=== PATIENT | female | born 1995 | race Caucasian/White ===

== ENCOUNTER 2024-10-11 08:14 | Emergency (ER) | payer OTHER, SELFPAY ==
[2024-10-11 08:17] VITALS: BP 130/89; PULSE 77; RESP 16; TEMP 36.3; O2SAT 100; BMI 28.3
--- NOTE | 2024-10-11 08:53 | CRLHL7_ITS ---
For Patients: As a result of the Cures Act, medical imaging exams and procedure reports are released immediately into your electronic medical record. You may view this report before your referring provider. If you have questions, please contact your health care provider. INDICATION: Abdominal pain. TECHNIQUE: CT abdomen and pelvis without contrast. COMPARISON: None. FINDINGS: Lower chest: Unremarkable. Liver: Normal in size and attenuation. No suspicious masses. Gallbladder and bile ducts: No stones or inflammation. No biliary dilatation. Pancreas: Unremarkable. No mass or inflammation. Spleen: Normal in size. No masses. Adrenal glands: Normal in size. No nodules. Kidneys: 0.9 centimeter hyperdense cyst versus cortical calcification in the mid left kidney. No suspicious renal lesion visible. No hydronephrosis or urolithiasis. Ureters normal in caliber. Urinary bladder thin-walled GI tract: No bowel obstruction or focal inflammation. Normal appendix. No diverticular disease. Vasculature: Abdominal aorta is normal in caliber. Lymph nodes: No lymphadenopathy. Peritoneum/Abdominal Wall: Unremarkable. No sign of mass or infiltration. No free air or significant free fluid. Pelvis: Unremarkable. No pelvic masses. IUD in place. Bones: Mild lower thoracic spondylosis. No suspicious osseous lesion. IMPRESSION: No acute inflammatory process in the abdomen or pelvis. Please note that all CT scans at this facility use dose modulation, iterative reconstruction, and/or weight-based dosing when appropriate to reduce radiation dose to as low as reasonably achievable. Dictated by Andrea Li MD @ 10/11/2024 9:36:21 AM (Electronically Signed)
--- NOTE | 2024-10-11 08:54 | ED.ABDPAIN ---
HPI - Abdominal Pain General Chief Complaint: Abdominal Pain Stated Complaint: Abdominal pain Time Seen by Provider: 10/11/24 08:35 History of Present Illness HPI narrative: This 29-year-old female comes in reporting 6 lb weight gain and difficulty passing stool over the past several days. She has had problems like this in the past but it is significantly worse recently. She does not report any fevers. She states that she has a history of bladder incontinence and has a stimulator that has corrected the problem with urinary incontinence but probably is contributing to her constipation. She did have a colonoscopy about 7 years ago with normal results. Related Data Home Medications ?Medication ?Instructions ?Recorded ?Confirmed buspirone 30 mg tablet 30 mg PO BID 09/07/24 10/11/24 duloxetine 60 mg capsule,delayed 60 mg PO BID 09/07/24 10/11/24 release (Cymbalta) gabapentin 300 mg capsule 300 mg PO BID 09/07/24 10/11/24 levonorgestrel 17.5 mcg/24 hr (up 1 device intrauterine ONCE 09/07/24 10/11/24 to 5 yrs) 19.5mg intrauterine device (Kyleena) prucalopride 2 mg tablet 2 mg PO QDAY 09/07/24 10/11/24 semaglutide 1 mg/dose (2 mg/1.5 2 mg subcut QWEEK 09/07/24 10/11/24 mL) subcutaneous pen injector Allergies Allergy/AdvReac Type Severity Reaction Status Date / Time formaldehyde Allergy Severe Anaphylaxis Verified 09/07/24 15:04 avocado Allergy Unknown Verified 10/11/24 08:22 Iodinated Contrast Media Allergy Unknown Verified 10/11/24 08:22 shellfish derived Allergy Unknown Verified 10/11/24 08:22 strawberry Allergy Unknown Verified 10/11/24 08:22 diclofenac AdvReac Mild Hives Verified 09/07/24 15:04 Sulfa (Sulfonamide AdvReac Mild Rash Verified 09/07/24 15:04 Antibiotics) Review of Systems Status of ROS Reports: 10 or more systems reviewed and unremarkable except as noted in History and below Narrative Constitutional: No fevers, no weight gain or loss. Eyes: No discharge. No vision changes. HENT: No congestion, no sore throat, no ear pain. Cardiovascular: No chest pain, no palpitations. Respiratory: No shortness of breath, no wheezes, no cough. Gastrointestinal: No vomiting, no diarrhea. Abdominal pain and distension. Genitourinary: No dysuria, no hematuria. Musculoskeletal: Normal range of motion. Skin: No rashes, no pruritis. Neurological: No dizziness, weakness, sensory change, speech change. Endo/Heme/Allergies: No bruising or bleeding. No polydipsia. Pysch: no suicidality, no anxiety, no insomnia. All other systems reviewed and are negative. [facility] Social History Smoking Status: Never smoker How often do you have a drink containing alcohol: monthly or less How often do you have six or more drinks on one occasion: Never AUDIT-C Alcohol total score: 1 Non-prescribed substance use: denies use Exam Narrative: Exam Narrative: Constitutional: Well-developed, well-nourished, no acute distress. HEENT: Normocephalic, atraumatic. Neck: Normal range of motion. Nontender. Supple. Heart: Regular. No murmurs. Normal rate. Intact distal pulses. Lungs: Clear to auscultation. No chest discomfort. No wheezes, rhonchi, or rales. Abdomen: Normal bowel sounds. Diffuse tenderness in the abdomen. No rebound tenderness. Genitalia: Deferred. Back: No midline tenderness. Normal range of motion. Extremities: Normal range of motion. No injury. Skin: Intact. No rash. Warm. No erythema or pallor. Neurologic: No altered sensation. No weakness. Alert and oriented. Psychiatric: No suicidality. No anxiety or depression. No insomnia. Nursing notes and vitals signs are reviewed. Const: Vital Signs, click to edit/add: Vital Signs - 24 hr 10/11/24 08:17 10/11/24 10:11 Temperature 97.4 F L Pulse Rate [Pulse Oximeter] 77 73 Respiratory Rate 16 16 Blood Pressure [Ri ght Upper Arm] 130/89 120/84 Pulse Oximetry 100 100 Oxygen Delivery Me thod Room Air Room Air Course Vital Signs Vital signs: Initial Vital Signs Temperature 97.4 F L 10/11/24 08:17 Temperature Source Temporal Artery Scan 10/11/24 08:17 Pulse Rate 77 10/11/24 08:17 Respiratory Rate 16 10/11/24 08:17 Blood Pressure 130/89 10/11/24 08:17 Blood Pressure Mean 102 10/11/24 08:17 Blood Pressure Position Sitting 10/11/24 08:17 Pulse Oximetry 100 10/11/24 08:17 Oxygen Delivery Method Room Air 10/11/24 08:17 Vital Signs Temperature 97.4 F L 10/11/24 08:17 Pulse Rate 77 10/11/24 08:17 Respiratory Rate 16 10/11/24 08:17 Blood Pressure 130/89 10/11/24 08:17 Pulse Oximetry 100 10/11/24 08:17 Oxygen Delivery Method Room Air 10/11/24 08:17 Temperature 97.4 F L 10/11/24 08:17 Pulse Rate 73 10/11/24 10:11 Respiratory Rate 16 10/11/24 10:11 Blood Pressure 120/84 10/11/24 10:11 Pulse Oximetry 100 10/11/24 10:11 Oxygen Delivery Method Room Air 10/11/24 10:11 MDM - Abdominal Pain MDM Narrative Medical decision making narrative: This patient comes in reporting constipation issues as described above. She states that her symptoms have seen and worse than before and she has used several enemas at home with small results. I did obtain CT imaging and this was done without contrast she states that she had a reaction to contrast in the past. CT results shows no acute findings. I do note that she has distended ascending colon on the right side and this is where she is having more symptoms. The left abdomen descending colon and rectum seemed to be fairly well evacuated probably because of her enema usage. I did review the current bowel regimen that she is using and recommended that she try adding magnesium products such as magnesium citrate or milk of magnesia. The patient is reassured with imaging and lab results today. Her lab results do also returned with normal findings. She is okay to be discharged home. Lab Data Labs: Lab Results 10/11/24 Range/Units 09:05 WBC 5.79 (4.50-11.00) K/uL RBC 4.26 (4.00-5.20) m/uL Hgb 13.1 (12.0-16.0) gm/dL Hct 37.8 (33.0-51.0) % MCV 89 (80-100) fL MCH 31 (26-34) pg MCHC 35 (32-36) gm/dL RDW Coeff of Sd 11.5 (11.5-15.5) % Plt Count 176 (140-440) K/uL Neut % (Auto) 55.8 (42.0-72.0) % Lymph % (Auto) 34.2 (20-44) % [place] % (Auto) 7.6 (0.0-11.0) % Eos % (Auto) 1.9 (0.0-7.0) % Baso % (Auto) 0.5 (0.0-3.0) % Neut # (Auto) 3.23 (1.7-7.0) K/uL Lymph # (Auto) 1.98 (0.90-2.90) K/uL [place] # (Auto) 0.40 (0.00-0.90) K/UL Eos # (Auto) 0.11 (0.00-0.50) K/uL Baso # (Auto) 0.03 (0.00-0.30) K/uL Abs Immat Gran (auto) 0.00 (0.00-0.30) K/uL Imm/Tot Granulo (auto) 0.0 % Sodium 139 (135-149) mmol/L Potassium 4.2 (3.6-5.1) mmol/L Chloride 103 (96-114) mmol/L Carbon Dioxide 28 (20-32) mmol/L Anion Gap 8 (7-15) mEq/L BUN 8 (5-24) mg/dL Creatinine 0.7 (0.5-1.5) mg/dL Estimated Creat Clear 105.74 Estimated GFR 119 ml/min Glucose 78 (60-115) mg/dL Calcium 9.2 (8.4-10.6) mg/dL C-Reactive Protein < 0.5 L (0.5-1.0) mg/dL Imaging Data CT scan - abdomen: Radiologist's impression: No acute inflammatory process in the abdomen or pelvis. Discharge Plan Discharge Clinical Impression: Abdominal pain, Constipation Patient Disposition: Home, Self-Care Condition: Stable Additional Instructions: Continue current plans. Use magnesium products and other [id number] medicines as needed and directed for bowel management. Return if worsening. Prescriptions: No Action prucalopride 2 mg tablet 2 mg PO QDAY gabapentin 300 mg capsule 300 mg PO BID buspirone 30 mg tablet 30 mg PO BID duloxetine [Cymbalta] 60 mg capsule,delayed release(DR/EC) 60 mg PO BID semaglutide 1 mg/dose (2 mg/1.5 mL) pen injector 2 mg subcut QWEEK Kyleena 17.5 mcg/24 hr (5 yrs) 19.5 mg intrauterine device 1 device intrauterine ONCE Rx Instructions: as a single dose Follow Up/Referrals: Provider,Not a Local [Primary Care Provider, Family Practice] Stand Alone Forms: MyHealth Info Instructions
--- OUTSIDE RECORDS SUMMARY | 2024-10-11 09:00 | XMS_ITS | Clinical Summary ---
Author Organization [facility] Address [address] , [address] [place] [address] Phone Care Team Providers Care Doctor Of Nurse Anesthesia Practice Name Role Phone Micaela Long Unavailable Conditions or Problems Problem Name Problem Code Onset Date Status Entry Date Provider Comment Standard Description Annotate Migraine headache with aura 9285802 (SNOMED CT) 07/06 Active 07/06 Cece Sears MD Migraine with aura Migraine w/out aura 70714651 (SNOMED CT) 07/06 Active 07/06 Cece Sears MD Migraine without aura Hypersomnia (ESS 19; NL MSLT x2; 2022---20 msl on 5 naps) G47.11 (ICD-10-CM ) 10/16 Active 10/16 Edy Brooks Jr, MD 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 (PSG w/29 arousals/hr) G47.00 (ICD-10-CM ) Active dEy Brooks Jr, MD Insomnia, unspecified Conversion disorder with mixed symptom presentation ([place]) 13872831 (SNOMED CT) 10/16 Active 10/16 Edy Brooks Jr, MD Dissociative disorder Nonrestorati ve sleep G47.9 (ICD-10-CM ) 10/16 Active 10/16 Edy Brooks Jr, MD Sleep disorder, unspecified Excessive Daytime Sleepiness 820679269 (SNOMED CT) 10/30 Resolved 10/30 Edy Brooks Jr, MD Drowsy Snoring 37017340 (SNOMED CT) 12/01 Resolved 12/02 Edy Brooks Jr, MD Snoring Sleep disturbance, NOS 53026688 (SNOMED CT) 12/02 Resolved 12/03 Edy Brooks Jr, MD Dyssomnia Hypersomnia (ESS 19; NL MSLT 2018) 05145401 (SNOMED CT) 10/16 Inactive 10/16 Edy Brooks Jr, MD Hypersomnia 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 aura, 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 G43.719 (ICD-10-CM ) 06/03 Active 06/03 Doron Restrepo MD Chronic migraine without aura, intractable, without status migrainosus TIA 111130128 (SNOMED CT) 01/08 Active 01/08 Doron Restrepo MD Transient cerebral ischemia indeterminat e stereotypic spells R40.4 (ICD-10-CM ) 07/23 Active 07/23 Doron Restrepo MD Transient alteration of awareness Sleep disturbance, NOS 61493130 (SNOMED CT) 12/02 Removed 12/03 Venecia Henriquez MD Dyssomnia Snoring 08485964 (SNOMED CT) 12/01 Removed 12/02 Venecia Henriquez MD Snoring Excessive Daytime Sleepiness 674560330 (SNOMED CT) 10/30 Removed 10/30 Venecia Henriquez MD Drowsy Fatigue, chronic 16118232 (SNOMED CT) 10/30 Active 10/30 Venecia Henriquez MD Fatigue Paresthesias 58978189 (SNOMED CT) 09/17 Active 09/17 Doron Restrepo MD Paresthesia Somatization disorder 006444446 (SNOMED CT) 09/23 Active 10/14 Milagros Landrum PhD Somatization disorder Leg pain 23209634 (SNOMED CT) 10/09 Active 10/09 Doron Restrepo MD Pain in lower limb Headache 25121734 (SNOMED CT) 09/07 Active 09/08 Ian Zuniga MD Headache Mixed urinary incontinence 645564329 (SNOMED CT) 09/07 Active 09/08 Ian Zuniga MD Mixed urinary incontinence Lumbar disc herniation 83459814 (SNOMED CT) 09/07 Active 09/08 Ian Zuniga MD Displacement of lumbar intervertebral disc without myelopathy REFLEX SYMPATHETIC DYSTROPHY OF THE LOWER LIMB 101986640 (SNOMED CT) 06/20 Active 06/21 Ian Zuniga MD Reflex sympathetic dystrophy of lower extremity Medications Medication Instructions Start Date Stop Date Generic Name NDC Provider BELSOMRA 10 MG TABS take 1 tab by mouth 30 minutes before bedtime. suvorexant [id number] Katrina Amado ROLL TESTER BELSOMRA 10 MG TABS take 1 tab by mouth 30 minutes before bedtime. 06/10 suvorexant 77709208210 Margie Naqvi PA-C OMEPRAZOLE 20 MG CPDR 1 cap daily omeprazole 85595347105 Margie Naqvi PA-C DULOXETINE HCL 60 MG CPEP 1 cap BID duloxetine 87598811874 Margie Naqvi PA-C AJOVY 225 MG/1.5ML SOAJ Inject 1 pen injector subcutaneously once a month 05/13 fremanezumab-[facility] [id number] Margie Naqvi PA-C BUSPIRONE HCL 10 MG TABS 1 tab BID buspirone 27207518571 Margie Naqvi PA-C GABAPENTIN 300 MG CAPS 1 cap BID gabapentin 42550354805 Margie Naqvi PA-C MOTEGRITY 2 MG TABS 1 tab daily prucalopride 36752176546 Margie Naqvi PA-C WEGOVY 1.7 MG/0.75ML SOAJ 2.4 mg weekly semaglutide (weight loss) 68793667484 Margie Naqvi PA-C MELATONIN ER 3 MG CR-TABS take 1 tab at bedtime 06/25 melatonin 48224928598 Margie Naqvi PA-C CONTROL PILL 10/16 CONTROL PILL Edy Brooks Jr, MD PRILOSEC CAPSULE DELAYED RELEASE 10/16 PRILOSEC CAPSULE DELAYED RELEASE Edy NEWTONVY 0.5 MG/0.5ML SOAJ 10/16 semaglutide (weight loss) 78802681196 Edy Brooks Jr, MD BUSPIRONE HCL 10 MG TABS 1 three times a day 20 mg BID 10/16 buspirone 21151649304 Edy Brooks Jr, MD CYMBALTA 60 MG CPEP 1 twice a day 10/16 duloxetine 63248034567 Edy Brooks Jr, MD GABAPENTIN 300 MG CAPS 1 twice a day 10/16 gabapentin 29229017807 Edy Brooks Jr, MD GABAPENTIN 300 MG CAPS 10/08 gabapentin 00308852279 Edy Brooks Jr, MD BUSPIRONE HCL 10 MG TABS 05/13 buspirone 76631958892 Edy Brooks Jr, MD OMEPRAZOLE 20 MG CPDR 10/08 omeprazole 19947148982 Edy SAVAGEGOVY 1.7 MG/0.75ML SOAJ 05/13 semaglutide (weight loss) 04567424700 Edy Brooks Jr, MD MOTEGRITY 2 MG TABS 05/13 prucalopride 50429942952 Edy Brooks Jr, MD NORETHINDRONE 0.35 MG TABS norethindrone (contraceptive) 80225658277 Edy Brooks Jr, MD DULOXETINE HCL 60 MG CPEP 05/13 duloxetine 68629347017 Edy Brooks Jr, MD PROVIGIL 100 MG TABS Take 1 tablet by mouth once a day 07/11 modafinil 77297569702 Margie Naqvi PA-C BUSPIRONE HCL 10 MG TABS 1 three times a day 20 mg BID 0 10/16 buspirone 71282265376 Margie Hickmanaravindil PA-C PREDNISONE 20 MG TABS Day #1 and #2 take 2 pills tid. Day #3 and #4 take 2 pills bid. Day #5 and #6 take 1 pill qAM. Then stop. 07/10 prednisone 16674835661 Margieelizabeth Rojasil PA-C WEGOVY 0.5 MG/0.5ML SOAJ 10/16 semaglutide (weight loss) 33256428589 Margie Rafiakatrina Rojasil PA-C PROBIOTIC (LACTOBACILLUS) CAPS lactobacillus acidophilus 26165885306 Margie Morataya Marylouucheril PA-C CALCIUM ASCORBATE 500 MG TABS ascorbate calciu m (vitamin c) 22107867111 Margie Rojasil PA-C MULTI-VITAMINS TABS multivitamin 12925460660 Margie Rafia Marylouucheril PA-C LACTULOSE 10 GM/15ML SOLN prn lactulose 11506387328 Margie Rafiakatrina Rojasil PA-C MIRALAX 17 GM/SCOOP POWD prn polyethylene glycol 3350 99790002018 Margie Rafia Cherucheril PA-C Fleet Enema 19-7 gram/118 mL enema prn sodium phosphates 25591669577 Margie Morataya Marylouucheril PA-C KIRK ALLERGY 180 MG TABS fexofenadine 98612297874 Margie Rafia Marylouucheril PA-C PROVIGIL 200 MG TABS Take 1 once a day 07/10 modafinil 66371260824 Margie Morataya Marylouaravindil PA-C BENADRYL ALLERGY TABLET BENADRYL ALLERGY TABLET Margie Morataya Marylouucheril PA-C BUSPIRONE HCL 5 MG TABS 1 three times a day 07/10 buspirone 66973664209 Margie Naqvi KIN-C GABAPENTIN 300 MG CAPS 1 twice a day 10/08 gabapentin 16362820101 Margie Naqvi KIN-C CYMBALTA 60 MG CPEP 1 twice a day 10/16 duloxetine 74686188457 Margie Naqvi KIN-C AJOVY 225 MG/1.5ML SOAJ Inject 1 pen injector subcutaneously once a month 05/[facility] 0[facility] Margie Naqvi KIN-C PROVIGIL 100 MG TABS Take 1 tablet by mouth once a day 07/11 modafinil 92965125097 Margie Naqvi KIN-C PREDNISONE 20 MG TABS Day #1 and #2 take 2 pills tid. Day #3 and #4 take 2 pills bid. Day #5 and #6 take 1 pill qAM. Then stop. 07/10 prednisone 34124027476 Doron Restrepo MD PROVIGIL 200 MG TABS take 1 pill daily 07/10 MODAFINIL 41433345635 Doron Restrepo MD BENADRYL ALLERGY TABS 07/10 DIPHENHYDRAMINE HCL TABS 04019716785 Venecia Henriquez MD MAGNESIUM CAPSULE MAGNESIUM OXIDE CAPS 35227793413 Venecia Henriquez MD KIRK ALLERGY 180 MG TABS 07/10 FEXOFENADINE HCL 23071728218 Doron Restrepo MD BUSPIRONE HCL 5 MG TABS 1 pill tid 07/10 BUSPIRONE HCL 46910978678 Doron Restrepo MD GABAPENTIN 300 MG CAPS 1 pill twice daily 10/08 GABAPENTIN 07302636162 Doron Restrepo MD LYRICA 150 MG CAPS 1 bid 09/17 PREGABALIN 41040996711 Doron Restrepo MD PRILOSEC CAPSULE DELAYED RELEASE 10/16 OMEPRAZOLE CPDR 22798649735 Doron Restrepo MD CYMBALTA 60 MG CPEP 1 bid 07/10 DULOXETINE HCL 36228059975 Doron Restrepo MD LYRICA 150 MG CAPS 1 bid 08/17 PREGABALIN 15592032430 Doron Restrepo MD NEURONTIN 300 MG CAPS 1 pill 3 times daily 06/02 GABAPENTIN 32888942864 Doron Restrepo MD CYMBALTA 20 MG CPEP 2 pills twice daily 06/02 DULOXETINE HCL 17536635148 Doron Restrepo MD KIRK ALLERGY 180 MG TABS 1 daily 06/02 FEXOFENADINE HCL 19072680923 Doron Restrepo MD LINZESS CAPS 1 daily 06/02 LINACLOTIDE CAPS 80612147291 Doron Restrepo MD CONTROL PILL 10/16 CONTROL PILL Doron Restrepo MD LINZESS CAPS 1 daily 06/02 LINACLOTIDE CAPS 48216679830 Doron Restrepo MD KIRK ALLERGY 180 MG TABS 1 daily 06/02 FEXOFENADINE HCL 93313584616 Doron Restrepo MD CYMBALTA 20 MG CPEP 2 pills twice daily 06/02 DULOXETINE HCL 23941609561 Doron Restrepo MD AMITRIPTYLINE HCL 10 MG TABS Week #1 take 1 in PM, Week #2 take 2 in PM, then Week #3 and on take 3 in PM 12/25 AMITRIPTYLINE HCL 47696876795 Doron Restrepo MD AMITRIPTYLINE HCL 10 MG TABS Week #1 take 1 in PM, Week #2 take 2 in PM, then Week #3 and on take 3 in PM 12/25 AMITRIPTYLINE HCL 73491775579 Doron Restrepo MD NEURONTIN 300 MG CAPS 1 pill 3 times daily 06/02 GABAPENTIN 37151767587 Doron Restrepo MD NEURONTIN 300 MG CAPS 2 pills 3 times daily 11/13 GABAPENTIN 78741047879 Doron Restrepo MD AMITRIPTYLINE HCL 10 MG TABS 3 q hs 10/20 AMITRIPTYLINE HCL 57410553324 Katrina Rodasalan RN NEURONTIN 300 MG CAPS 2 bid 10/09 GABAPENTIN 59258576143 Ian Zuniga MD NEURONTIN 300 MG CAPS 1 qhs x 1wk then 1 bid 09/15 GABAPENTIN 75640800199 Ian Zuniga MD AMITRIPTYLINE HCL 10 MG TABS 3 q hs 10/20 AMITRIPTYLINE HCL 32378190511 Ian Zuniga MD AMITRIPTYLINE HCL 10 MG TABS 1 qhs x 10d then 2 qhs 06/27 AMITRIPTYLINE HCL 77626650414 Ian Zuniga MD Medications Administered No information available. Allergies, Adverse Reactions, Alerts Allergy Name Reaction Description Start Date Severity Status Provider [facility] MELATONIN hard to breath Critical Active Sandra Serrano PABellaC SULFA hives Moderate Active Margie Naqvi PA-C CONTRAST DYE Critical Active Doron Restrepo MD FORMALDEHYDE Critical Active Doron Restrepo MD DICLOFENAC SODIUM Critical Active Kathleen Restrepo MD VICODIN Critical Active Doron Restrepo MD SULFA Critical No Longer Active Doron Restrepo MD Results Date Name Value Unit Range Flag Description Office Visit: PRE SJ PATIENT 10/10/15 10:05- 10/10/15 10:05 REFERRING PHYS... SMOK STATUS never smoker Toba senior accountant analyst smoking status Replaced Document: (P) PROTE IN, TOTAL AND PROTEIN ELECTROPHORESIS WITH IMMUNOFI ... ZINC, SERUM * ug/dL Zinc [Mas s/volume] in Serum or Plasma HGBA1C * % Hemoglobin A1c/Hemoglobin, total in Blood - % B-12 * pg/mL Cobalamin (Vi tamin B12) [Mass/volume] in Serum or Plasma ABNPROTBND3 * g/dL Abnormal Protein Band 3, g/dL ABNPROTBND2 * g/dL Abnormal Protein Band 2, g/dL ABNPROTBND * g/dL Abnormal P rotein Band 1, g/dL GAMMA GLOB * mg/dL Gamma glob ulin [Mass/volume] in Serum or Plasma by Electrophoresis [id number] * g/dL beta 2 g lobulin [id number] * g/dL beta 1 g lobulin ALPHA 2 GLOB * Alpha 2 globulin [Mass/volume] in Serum or Plasma by Electrophoresis ALPH-1 SR PE * g/dL alpha-1 globulin, serum, by protein electrophoresis ALBUM SER PE * g/dL albumin, serum by protein electrophoresis Internal Other: Authorizatio n - OBS PTSTAUTHDT Done N PT Startin g Authorization Date Lab Report: FTA-ABS FTA AB S NON-REACTIVE NON-REAC TIVE N FTA Antibody, Serum Clinical Lists Update: Metho d of Contact METHCONTACT secmsg Patient's prefered method of contact Lab Report: (P) COMPREHENSIV E METABOLIC PANEL, CBC (INCLUDES DIFF/PLT), ... CERULOPLASMI * mg/dL cerulopl asmin, serum COMMENTS * comments AUTONUC RBC * /100{WB C} Nucleated RBC BLAST % * % blasts as per cent of blood leukocytes BASOPHIL % * % Basophils/ 100 leukocytes in Blood by Manual count EOSINOPHIL % * % Eosinoph ils/100 leukocytes in Blood by Manual count MONOCYTE % * % Monocytes/ 100 leukocytes in Blood by Automated count REACT LYMPH% * % reactive lymphocytes, blood, as percent of total leukocytes LYMPHS % * % Lymphocytes/ 100 leukocytes in Blood by Automated count PROMYELO % * % promyelocy salvatore as percent of blood leukocytes MYELOCYTE % * % myelocyte s as percent of blood leukocytes METAMYELO % * % metamyelo cytes as percent of blood leukocytes BANDS CT * 10*3/mm 3 neutrophil count, band form, blood PMN % * % Neutrophils/1 00 leukocytes in Blood by Automated count NUCLEATRBCAB * ABSOLUTE NUCLEATED RBC BLASTS * blast count, blood BASOPH COUNT * 10*3/mm 3 Basophils [#/volume] in Blood by Manual count EOS COUNT * 10*3/mm 3 eosinophil count, blood MONOSCT AUTO * 10*3/uL Monocyte s [#/volume] in Blood by Automated count LYMPH COUNT * 10*3/mm 3 lymphocyte count, blood PROMYELO CT * 10*3/mm 3 promyelocyte count, blood MYELOCYTES * 10*3/mm 3 Myelocytes [#/volume] in Blood by Manual count METAMYELO CT * 10*3/mm 3 metamyelocyte count, blood ABS BANDS * {Cells} /uL Absolute Band Neutrophil count NEUT CT MANU * 10*3/mm 3 neutrophil count, blood, manual MPV * fL Platelet mean volume [Entitic volume] in Blood by Rachelle PLATELETS * 10*3/mm 3 Platelets [#/volume] in Blood by Automated count RDW * % Erythrocyte distribution width [Ratio] by Automated count MCHC * % MCHC [Mass/vo lume] by Automated count MCH * pg MCH [Entitic mass] by Automated count MCV * fL MCV [Entitic volume] by Automated count HCT * % Hematocrit [V olume Fraction] of Blood by Automated count HGB * g/dL Hemoglobin [Mass/volume] in Blood RBC * 10*6/mm 3 Erythrocytes [#/volume] in Blood by Automated count WBC * 10*3/mm 3 Leukocytes [#/volume] in Blood by Automated count SGPT (ALT) 47 U/L 6-29 H Alanine aminotransferase [Enzymatic activity/volume] in Serum or Plasma AST_SGOT 26 10-30 N Aspartate aminotransferase [Enzymatic activity/volume] in Serum or Plasma ALK PHOS 39 U/L 33-115 N Alkaline phosphatase [Enzymatic activity/volume] in Blood BILI TOTAL 0.3 mg/dL 0.2-1.2 N Bilirubin. total [Mass/volume] in Serum or Plasma A/G RATIO 1.2 (calc) 1.0-2.5 N Albumin/ Globulin [Mass Ratio] in Serum or Plasma GLOBULIN TOT 3.2 G/DL (CALC) g/dL 1.9-3.7 N Globulin [Mass/volume] in Serum ALBUMIN 3.9 g/dL 3.6-5.1 N Albumin [Mass/volume] in Serum or Plasma PROTEIN, TOT 7.1 g/dL 6.1-8.1 N Protein [Mass/volume] in Serum or Plasma CALCIUM 9.1 mg/dL 8.6-10.2 N Calcium [Moles/volume] in Serum or Plasma CO2 TOTAL 23 mmol/L 19-30 N carbon diox sallie, serum, total CHLORIDE 105 mmol/L 98-110 N Chloride [Moles/volume] in Serum or Plasma POTASSIUM 4.1 mmol/L 3.5-5.3 N Potassium [Moles/volume] in Serum or Plasma SODIUM 136 mmol/L 135-146 N Sodium [Moles/volume] in Serum or Plasma BUN/CREAT NOT APPLICABLE (calc) 6-22 Urea nitrogen/Creatinine [Mass Ratio] in Serum or Plasma EGFR IF AFA 136 mL/min/ 1.73m2 > OR = 60 N Glomerular filtration rate/1.73 sq M.predicted among blacks [Volume Rate/Area] in Serum, Plasma or Blood by Creatinine-based formula (MDRD) EGFR NOT AFA 118 mL/min/ 1.73m2 > OR = 60 N Glomerular filtration rate/1.73 sq M.predicted among non-blacks [Volume Rate/Area] in Serum, Plasma or Blood by Creatinine-based formula (MDRD) CREATININE 0.73 mg/dL 0.50-1.1 0 N Creatinine [Mass/volume] in Serum or Plasma BUN 10 mg/dL 7-25 N Urea nitrogen [Mass/volume] in Serum or Plasma GLUCOSE SER 95 mg/dL 65-99 N Glucose [Mass/volume] in Serum or Plasma Replaced Document: (P) COMPR EHENSIVE METABOLIC PANEL, CBC (INCLUDES DIFF/PLT), ... TSH * u[iU]/m L Thyrotropin [Units/volume] in Serum or Plasma T4, FREE * ng/dL Thyroxine (T 4) free [Mass/volume] in Serum or Plasma T4, TOTAL * ug/dL Thyroxine ( T4) [Mass/volume] in Serum or Plasma Office Visit: [facility] 06/02/17 11:43- 06/02/17 11:43 REFERRING PHYSICIAN NAME... [facility] Fall Risk Screening completed. Fall risk assessment Replaced Document: (P) PARAN EOPLASTIC AB EVAL W/REFL TITER/WB, BASIC, STRIATED ... ACETCHBND AB * acetylch oline binding antibody VOLTGATEDCC * Voltage G ated Calcium Channel Antibodies Replaced Document: (P) CREAT INE KINASE, TOTAL, SED RATE BY MODIFIED ZEINABREN, ... COPPER SER * ug/mL copper, bl ood VIT B1 PLSM * ug/L Vitamin B 1 (thiamine), plasma VIT B6 * VITAMIN B6, P LASMA VITD 25OH TO * VITAMIN D, 25 OH, TOTAL FERRITIN * ng/mL Ferritin [Mass/volume] in Serum or Plasma [id number] * GE use only - for [employer] import when terms are not otherwise specified HCV VIRUS AB * Hepatiti s C virus 5-1-1 Ab [Presence] in Serum by Immunoblot SSB * Sjogren's syndrome-B, extractable nuclear Ab, serum SSA * Sjogren's syndrome-A, extractable nuclear Ab, serum RHEUMOT FACT * [iU]/mL Rheumato id factor [Units/volume] in Serum or Plasma INTRP * Interpretatio n ANASCR IFA * OMAR SCREEN , IFA LYME DIS AB * Borrelia burgdorferi.VlsE1+p epC10 Ab [Units/volume] in Serum by Immunoassay TTG * U/mL TTG (tissue transglutaminase antibody) ESR 19 mm/h < OR = 20 N Erythrocyte sedimentation rate by Westergren method CPK * U/L Creatine mary jane se [Enzymatic activity/volume] in Serum or Plasma Internal Other: Verbal Autho rization/Emergency Contact - OBS VERBAL_EMER DONE Verbal authorization and emergency contact Lab Report: DRUG SCREEN, COM PREHENSIVE (URINE)---GBP DRUG SCREEN DRUG(S) DETECTED: A drug screensilvestre, qualitative PLEASE NOTE * Please no te: Office Visit: JANNY FSLE; katina zepeda s/e; retry Belsomra 5; psych; sleep psycholX MEDS REVIEW Done Documenta tion of current medications (procedure) Internal Other: Authorizatio n - OBS [email or web address] Yes Authoriza tion: Release of Information - Authorize [facility] - Payment and Healthcare Operations ROIAUTHOTHER Yes Authoriz ation: Release of Information - Authorize Others/Insurance - Payment and Healthcare Operations HIECONSENT Yes Consent To Release information to the Health Information Exchange (HIE) AUTHVMEMTM Yes Authorizat ion: Authorization for [facility] to leave messages, voicemail, send text messages, send emails AUTHRELHCARE Yes Authoriz ation: Release/Retrieval of Information to/from Healthcare Facilities, Pharmacy Benefit Payers and Providers AUTHPRIVPRAC Yes Authoriz ation: Notice of privacy practices AUTHBENEFIT Yes Authoriza tion: Assignment of Benefits and Payment Agreement Plan of Care Type Date Detail Pending order Follow up Sleep Pending order Follow up Sleep Pending Order exclud ed from report: Pending order Patient Instruct ions Pending order Patient Instruct ions Pending order Patient Instruct ions Pending order Sleep Psychology Referral Pending order Sleep Psychology Referral Pending order Patient Instruct ions Pending order Follow up Pending order Follow up Pending order Follow up Sleep JANNY Pending order Follow up Sleep AJNNY Pending Order exclud ed from report: Pending order Follow up JANNY in clinic or telemedicine Pending order 2 weeks Actigrap hy Watch w/ Sleep Journals (Call Sleep Lab) Pending order Overnight PSG w/ MSLT at end of the 2 week actigraphy (Call Sleep Lab) Pending order Follow up Sleep JANNY telemedicine Pending order Patient Instruct ions Pending order Sleep NEW Consul t w/ Sleep Physician Pending order Follow up JANNY in clinic or telemedicine Pending order Echocardiogram C omplete with Bubble w/o Contrast Pending order Telemedicine Fol low up Pending order Follow up Pending Order exclud ed from report: Pending order MRI-Brain W/WO Pending order EEG Routine Pending order EEG Routine Pending Order exclud ed from report: Pending order Follow up Pending order Patient Instruct ions Pending order Follow up Pending order Sleep Study - MS LT Pending order Actigraphy Watch - 2 week Pending order Patient Instruct ions Pending order Consult Pending order EMG bilateral up per ext Pending order OMAR Pending order CK (Creatine Kin ase) Total Pending order Copper Pending order ESR (Sedimentati on Rate) Pending order Hepatitis C Ab ( HCV) Pending order Immunofixation S lois Pending order Lyme Total Ab w/ Reflex (reflex to Western Blot) Pending order Rheumatoid (RA) Factor Pending order Sjogren's Ab - S SA/SSB (ANTI-Ro/ANTI-La) Pending order t-Transglutamina se (tTG) IgA Pending order Vitamin B1 (Thia mine) Pending order Vitamin B6 (Pyri doxine) Pending order Vitamin D 25 Hyd aubrey Pending order Ferritin Serum Pending order Consult Pending Order exclud ed from report: Pending order Patient Instruct ions Pending order Consult Pending order Neuropsych Testi ng Pending order Consult Pending order Patient Instruct ions Pending order Paraneoplastic A utoAb Eval Pending order Other Referral Pending order Patient Instruct ions Pending order Consult Pending order Consult Pending order Follow up Pending order MRI-Brain W/WO Pending order OMAR Pending order Copper Pending order Hemoglobin A1C Pending order Hepatitis C Ab ( HCV) Pending order Immunofixation S lois w/Electrophoresis Pending order Lyme Total Ab w/ Reflex (reflex to Western Blot) Pending order Rheumatoid (RA) Factor Pending order Sjogren's Ab - S SA/SSB (ANTI-Ro/ANTI-La) Pending order t-Transglutamina se (tTG) IgA Pending order Treponemal IgG ( Treponema Pallidum IgG ALEX) Pending order Vitamin B1 (Thia mine) Pending order Vitamin B12 Pending order Vitamin B6 (Pyri doxine) Pending order Vitamin D 25 Hyd aubrey Pending order Zinc Pending order Follow up Pending order Other Referral Patient education Amitriptyline% 20(Oral)%20(Tablet) Procedures Code Procedure Name Date Entry Date ORDERS Follow up Sleep ORDERS Follow up Sleep JANNY CPT-93990 Multiple Sleep Latency Testing - 4+ naps (91699) CPT-21106 Actigraphy tstg rec analysis & interp min 3-days (35165) CPT-47432 PSG, 4+ parameters w/ tech - 6yrs or trena r (61665) ORDERS Follow up JANNY in clinic or telemedicine 2 ORDERS Patient Instructions ORDERS 2 weeks Actigraphy W atch w/ Sleep Journals (Call Sleep Lab) ORDERS Overnight PSG w/ MSL T at end of the 2 week actigraphy (Call Sleep Lab) ORDERS Follow up Sleep JANNY telemedicine ORDERS Sleep NEW Consult w/ Sleep Physician 2022 ORDERS Follow up JANNY in clinic or telemedicine 2 ORDERS Echocardiogram Complete with Bubble w/o C ontrast ORDERS Telemedicine Follow up 02/24 ORDERS Follow up [id number] MRI-Brain W/WO ORDERS EEG Routine ORDERS Patient Instructions [id number] Documentation of current medicatio ns ORDERS Follow up CPT-38347 Multiple Sleep Laten cy Testing - 4+ naps (90313) CPT-49034 PSG, 4+ parameters w / tech - 6yrs or older (24209) CPT-37647 Actigraphy tstg rec analysis & interp min 3-days (17007) ORDERS Patient Instructions ORDERS Sleep Study - MSLT 8 ORDERS Actigraphy Watch - 2 week 20 22/10/27 [id number] Consult ORDERS EMG bilateral upper ext 2018 CPT-41380 Nerve Conduction 9-10 studies CPT-64278 EMG with NCS (5+ muscles) - 2 limbs 09/19 SCT-[id number] Consult SCT-[id number] Documentation of current medicatio ns ORDERS CK (Creatine Kinase) Total 2 ORDERS ESR (Sedimentation Rate) 201 01/08/16 ORDERS Vitamin D 25 Hydroxy ORDERS OMAR ORDERS Copper ORDERS Hepatitis C Ab (HCV) ORDERS Immunofixation Serum ORDERS Lyme Total Ab w/Refl ex (reflex to Western Blot) ORDERS Rheumatoid (RA) Factor 09/17 ORDERS Sjogren's Ab - SSA/SSB (ANTI-Ro/ANTI-La) ORDERS t-Transglutaminase (tTG) IgA ORDERS Vitamin B1 (Thiamine) 09/17 ORDERS Vitamin B6 (Pyridoxine) 2018 ORDERS Ferritin Serum ORDERS Patient Instructions [id number] Consult CPT-32635 Neuropsych assmnt w/ prov 4 hr CPT-6042933 Neuropsych assmnt w/ tech 2 hr CPT-1244537 Neuropsych test by computer ORDERS Neuropsych Testing 9 CPT-36220 Skin Biopsy, 1 lesion 06/17 CPT-27541 Skin Biopsy, addtional lesion SCT-[id number] Consult ORDERS Patient Instructions ORDERS Paraneoplastic AutoAb Eval 2 SCT-[id number] Documentation of current medicatio ns SCT-085204445 Other Referral ORDERS Patient Instructions SCT-[id number] Documentation of current medicatio ns SCT-689132086 Consult SCT-[id number] Consult SCT-[id number] Documentation of current medicatio ns ORDERS Follow up [facility]-[id number] Documentation of current medicatio ns CPT-28510 Brief emotional/behavioral assessment 201 10/10/22 SCT-[id number] Documentation of current medicatio ns CPT-23019 Brief emotional/behavioral assessment 201 10/10/11 CPT-K2061G ProHance Gadolinium- based MR Contrast - 20 ml vial CPT-06838 MRI Brain W/WO ORDERS Lyme Total Ab w/Refl ex (reflex to Western Blot) ORDERS t-Transglutaminase (tTG) IgA ORDERS Treponemal IgG (Trep onema Pallidum IgG ALEX) ORDERS Vitamin B1 (Thiamine) 10/09 ORDERS Vitamin B6 (Pyridoxine) 2015 [id number] MRI-Brain W/WO ORDERS Follow up [facility]-[id number] Documentation of current medicatio ns ORDERS Hemoglobin A1C ORDERS Immunofixation Serum w/Electrophoresis 20 18/10/06 ORDERS Vitamin B12 ORDERS Vitamin D 25 Hydroxy ORDERS Hepatitis C Ab (HCV) ORDERS Rheumatoid (RA) Factor 10/09 ORDERS OMAR ORDERS Copper ORDERS Sjogren's Ab - SSA/SSB (ANTI-Ro/ANTI-La) ORDERS Zinc [id number] Other Referral Vital Signs Date Name Value Unit Description Height 65.5 [in_us] height E&M BMI (Body Mass Index) 29.16 kg/m2 Bod y Mass Index (Ratio) Respiratory Rate 16 /min respirat ory rate E&M Weight Measured 177.3 [lb_av] weight E& M Weight Measured 177.3 [lb_av] weight E& M Weight Measured 80.59 kg weight in kilograms E&M BP Diastolic 78 mm[Hg] blood pressu re, diastolic BP Systolic 120 mm[Hg] blood pressur e, systolic Heart Rate 104 /min pulse rate Immunizations No information available. Advance Directives No information available.
--- OUTSIDE RECORDS SUMMARY | 2024-10-11 09:01 | XMS_ITS | Clinical Summary ---
Author Organization [facility] Address [address] [place] [address] Care Team Providers Care Quality Control Industrial Engineer Name Role Phone Doron Restrepo MD Unavailable [phone] Shkair Givens MD Unavailable [phone] Meera Salter Primary Care Provider [phone] Allergies Active Allergy Reactions Criticality Noted Date Comments Diatrizoate Allergen Hives 08/27/2018 Diclofenac Anaphylaxis,Angioedema High 08/22/2015 Fluticasone Other - Describe In Comment Field 10/03/2015 Nose Bleeds Unlisted Allergen (Include Detail In Comments) Anaphylaxis High 06/27/2015 Formaldehyde, any preservatives [place] Anaphylaxis,Hives High 06/27/2015 Sulfa (Sulfonamide Antibiotics) Hives 06/27/2015 Hydrocodone-Acetaminop hen Itching 06/27/2015 Medications EPINEPHrine (EPIPEN) 0.3 mg/0.3 mL auto-injector Inject 0.3 mg intramuscular one time if needed for Allergic Reaction. 2 Each 0 08/22/19 16 Active gabapentin (NEURONTIN) 300 mg capsule Take 300 mg by mouth two times daily. 0 11/15/19 16 Active ascorbic acid, vitamin C, (VITAMIN C) 1,000 mg tablet Take 1,000 mg by mouth once daily. 0 08/28/19 17 Active magnesium 250 mg tab Take 3 tablets by mouth once daily. 0 08/28/19 17 Active DULoxetine (CYMBALTA) 60 mg Delayed-release capsule Take 60 mg by mouth two times daily. Active busPIRone (BUSPAR) 10 mg tablet Take 25 mg by mouth two times daily. Morning and evening Active busPIRone (BUSPAR) 10 mg tablet Take 20 mg by mouth once daily in the afternoon. Active norethindrone, Contraceptive, (MICRONOR, 28,) 0.35 mg tablet Take 0.35 mg by mouth once daily in the evening. Active prucalopride (Motegrity) 2 mg tablet Take 2 mg by mouth once daily in the evening. Active promethazine (PHENERGAN) 12.5 mg tablet Take 12.5 mg by mouth 3 times daily if needed for Nausea/Vomiting. Active lactulose 10 gram/15 mL solution Take 20 g by mouth two times daily. Active LANSOPRAZOLE ORAL Take 1 Tablet by mouth two times daily before meals. Dose unknown Active oxyCODONE-acetamin ophen (PERCOCET) 5-325 mg per tabletIndications: Pain in both lower extremities Take 1 Tablet by mouth every 6 hours if needed for Pain. Max acetaminophen dose: 4000mg in 24 hrs. 6 Tablet 05/09/19 23 Active ondansetron (ZOFRAN ODT) 4 mg disintegrating tabletIndications: Chills Place 1 Tablet (4 mg) on the tongue every 6 hours if needed for Nausea/Vomiting. 10 Tablet 05/09/19 23 Active semaglutide (Wegovy) 0.25 mg/0.5 mL pen Inject 0.25 mg subcutaneous once weekly. 2 mL 3 2:20 PM SENIOR ENGINEER 05/29/19 23 Active fremanezumab-vfrm (Ajovy Autoinjector) 225 mg/1.5 mL atIn Inject 1 pen injector subcutaneously once a month 1.5 mL 11 07/11/19 23 Active semaglutide (Wegovy) 1 mg/0.5 mL pen Inject 0.5 mL (1 mg) subcutaneously once a week for 4 doses. 2 mL 3 5:01 PM CDT 07/25/19 23 Active lactulose 10 gram/15 mL solution Take 30-60 mL (20-40 g) by mouth up to three times daily. 5400 mL 3 06/03/19 23 Active lubiprostone (AMITIZA) 24 mcg capsule Take 1 Capsule (24 mcg) by mouth two times daily with meals and water. 60 Capsule 11 12/16/19 22 Active omeprazole (PRILOSEC) 20 mg Delayed-Release capsule Take 1 Capsule (20 mg) by mouth two times daily 1 hour before meals. 60 Capsule 3 5:00 PM CDT 12/12/19 23 Active Melatonin 3 mg TbER Take 1 tablet by mouth at bedtime. 30 Tablet 5 3 5:05 PM SENIOR ENGINEER 03/13/20 23 Active suvorexant (Belsomra) 10 mg tablet Take 1 tablet by mouth 30 minutes before bedtime. 30 Tablet 5 3 4:51 PM SENIOR ENGINEER 03/21/20 23 Active benzonatate (TESSALON) 200 mg capsule Take 1 Capsule (200 mg) by mouth three times a day as needed for Cough. 30 Capsule 04/03/20 23 Active norethindrone, Contraceptive, (MICRONOR, 28,) 0.35 mg tablet Take 1 Tablet (0.35 mg) by mouth once daily. 84 Tablet 1 4 3:54 PM CDT 07/14/19 24 Active traMADoL (ULTRAM) 50 mg tablet Take 1 Tablet (50 mg) by mouth every 6 hours if needed for pain 10 Tablet 4 4:59 PM CDT 08/14/19 24 Active triamcinolone (ARISTOCORT; KENALOG) 0.1 % cream Apply a thin layer topically to areas of eczema on hands, arms, and back two times daily. Do not use on face, armpits, or groin. 80 g 11 08/27/19 24 Active prucalopride (Motegrity) 2 mg tablet Take 1 tablet by mouth every day. 90 Tablet 3 5 5:21 PM CDT 09/19/19 24 Active drospirenone, contraceptive, (Slynd) 4 mg (28) tab Take 1 Tablet by mouth once daily. 84 Tablet 3 4 4:59 PM CDT 12/02/19 24 Active busPIRone 10 mg tablet Take 2 Tablets (20 mg) by mouth two times daily. 360 Tablet 3 5 10:14 AM CDT 12/16/19 24 Active DULoxetine 60 mg Delayed-release capsule Take 1 Capsule (60 mg) by mouth two times daily. 180 Capsule 3 5 11:16 AM CDT 12/16/19 24 Active gabapentin 300 mg capsule Take 1 Capsule (300 mg) by mouth two times daily. 180 Capsule 3 5 2:37 PM CDT 12/16/19 24 Active semaglutide, weight loss, (Wegovy) 2.4 mg/0.75 mL subcutaneous pen Inject 2.4 mg subcutaneous once weekly. 9 mL 3 4 4:41 PM SENIOR ENGINEER 12/16/19 24 Active norethindrone, Contraceptive, (MICRONOR, 28,) 0.35 mg tablet Take 1 Tablet (0.35 mg) by mouth once daily. 84 Tablet 3 5 2:43 PM SENIOR ENGINEER 01/21/20 24 Active EPINEPHrine 0.3 mg/0.3 mL auto-injector Inject 0.3 mg intramuscular one time if needed for up to 1 dose. May repeat. 2 Each 1 5 11:16 AM CDT 03/17/20 24 Active Active Problems Patient Care Coordination No te Formatting of this note migh t be different from the original. Provided patient [facility] Weight Management Manual: Medical Program Kesha Perry RD, LD [facility] Bariatric [place] 02/15/2016 Problem Noted Date Diagnosed Date Contact dermatitis and eczema 05/09/2022 Overview (05/09/2022): OTC eucerin cream Routine health maintenance 05/06/2022 Overview (05/09/2022): Reviewed at physical exam 05/06/2022 Menstrual periods: regular/PCOS Calcium/vit D: Recommended daily DEXA: NA Obesity: Estimated body mass index is 32.3 kg/m as calculated from the following: Height as of 04/24/22: 1.651 m (5' 5). Weight as of 04/24/22: 88 kg (194 lb 1.6 oz). Exercise: Recommended daily 30 min Smoking cessation: Never smoker Mammogram: DUE 39 Pap smear: Last 2017, 05/06/2022 completed Colonoscopy: neg 2017 for IBS-C symptoms. DUE age 44 Chronic migraine without aur a, intractable, without status migrainosus 04/03/2022 Urinary frequency 03/20/2022 Overview (05/09/2022): Added automatically from request for surgery [id number] Transient ischemic attack 01/08/2022 Acute kidney injury 12/27/2021 Contrast media allergy 12/27/2021 Slurred speech 12/27/2021 PCOS (polycystic ovarian syndrome) 12/22/2020 Iron deficiency 04/17/2020 Overview (05/09/2022): Ongoing iron def 04/2020 (improved ferritin and iron panel, STFR/ferritin 1.83) Transient alteration of awareness 07/24/2019 History of anaphylaxis 03/24/2019 Overview (05/09/2022): formaldehyde Dyssomnia 12/02/2018 Snoring 12/01/2018 Somnolence 10/30/2018 Bat bite wound 10/18/2018 Raynaud's phenomenon without gangrene 08/14/2018 Polymyalgia 05/20/2018 History of menorrhagia 04/23/2018 Abnormal finding on MRI of brain 04/07/2018 Overview (05/09/2022): 05/2016 bilat optic nerve sheath, 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 Per PMR consult 2016 She has been to multiple doctors including neurosurgeons, neurologists without any definitive cause for her pain. MRIs showed some disc bulging at L5-S1 with Tarlov cysts in the sacral area. She did go see a doctor in [place] that specializes in Tarlov cysts who felt those were likely are contributing to her symptoms I recommended she try to get a nerve block at the S1 level to see if that helps with her symptoms. physical therapy, gabapentin 300 mg t.i.d. 2015, 2016 OSH Lumbar MRI - s/p injection x2 Dr Jo PMR with relief. Back pain controlled as of 04/07/2018 Chronic insomnia 04/07/2018 Overview (05/09/2022): Benadryl rarely used 2 times per month, has not had sleep study. Family history of colonic polyps 03/31/2018 Overview (05/09/2022): Prior colonoscopy for symptoms 2017 negative. Mother polyps age 45, great aunt colon cancer, mat grandfather polyps Fatigue 03/31/2018 Somatization disorder 09/23/2017 Migraine without aura and wi thout status migrainosus, not intractable 02/28/2017 Overview (05/09/2022): Imitrex works well for abortive therapy, currently reports under control. Major depressive disorder with single episode Lupus anticoagulant positive 05/23/2016 Overview (05/09/2022): No combined contraceptives. Progesterone only IUD or mini pill advised. 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 Follows with a therapist every 3 weeks but [place], 1st name Louise. Has been on Cymbalta 60 mg b.i.d. for the past few years. Obsessive-compulsive disorder 01/24/2005 Overview (09/14/2015): Overview: w/ separation anxiety, specific phobia Onset: Since 3rd grade Obesity (BMI 30-39.9) Depression Overview (03/08/2016): Saw a therapist who specialized in chronic pain-no longer seeing Now in a chronic disease support group Migraines Tarlov cysts Overview (09/14/2015): spine and sacrum GERD (gastroesophageal reflux disease) Anxiety Overview (09/14/2015): panic Paresthesias Overview (09/14/2015): bilateral legs, perineal area Incontinence Overview (09/14/2015): inconclusive work up Nausea Overview (03/08/2016): Chronic Neuropathy Overview (09/14/2015): bilateral leg numbness, gabapentin Iron deficiency anemia Constipation Overview (09/15/2015): severe Resolved Problems Problem Noted Date Diagnosed Date Resolved Date Chronic interstitial cystitis 09/14/2015 09/14/2015 Overactive bladder 09/14/2015 6 Incontinence 09/14/2015 09/14/2015 Depression 09/14/2015 Neuropathy 09/15/2015 H/O blood clots 09/14/2015 GERD (gastroesophageal reflux disease) 09/14/2015 Depression 09/14/2015 Orthostatic lightheadedness 03/08/2016 OCD (obsessive compulsive disorder) 09/14/2015 Overview (09/14/2015): since 3rd grade Constipation 10/03/2015 Constipation 10/03/2015 Family History Medical History Relation Name Comments Other Brother 1 history of over weight/ obesity Other Brother 2 history of over weight/ obesity Hypertension Father Other Father history of over weight/ obesity Diabetes Maternal Grandfather Heart Disease Maternal Grandfather Hyperlipidemia Maternal Grandfather Hypertension Maternal Grandfather Other Maternal Grandfather history of overweight/ obesity Hyperlipidemia Maternal Grandmother Other Maternal Grandmother history of overweight/ obesity Other Mother history of over weight/ obesity Heart Disease Paternal Grandfather Relation Name Status Comments Brother 1 Alive Brother 2 Alive Father Alive Maternal Grandfather Alive Maternal Grandmother Alive Mother Alive Paternal Grandfather Alive Paternal Grandmother Alive Social History Tobacco Use Types Packs/Day Years Used Date Smoking Tobacco: Never Smokeless Tobacco: Never Tobacco Cessation:Counseling Given: Yes Comments:05/27/2016 Alcohol Use Standard Drinks/Week Comments No 0 (1 standard drink = 0.6 oz pure alcohol) 05/27/2016: last consumed 04-25-15 Social Connections Answer Date Recorded Frequency of Communication with Friends and Fami ly Not on file 08/13/2022 Interpersonal Safety Answer Date Record ed Are you being hit, kicked, p ushed or yelled at (see row info)? No 06/16/2024 Interpersonal Safety Abuse 12 - 18 Not on file 06/16/2024 Interpersonal Safety Ambulatory Vulnerability No t on file 06/16/2024 Comments No Sex and Gender Information Value Date Recorded Sex Assigned at Not on file Legal Sex Female 1:04 PM SENIOR ENGINEER Gender Identity Not on file Sexual Orientation Not on file Occupation Industry Job Start Date Job End Date [employer]IAN Not on file Not on file Not on file Obstetrics History Last Filed Vital Signs Vital Sign Reading Time Taken Comments Blood Pressure 115/73 06/16/2024 1:30 PM SENIOR ENGINEER Pulse 84 06/16/2024 1:30 PM SENIOR ENGINEER Temperature 36.6 C (97.9 F) 06/16/2024 11:50 AM SENIOR ENGINEER Respiratory Rate 20 06/16/2024 11:50 AM SENIOR ENGINEER Oxygen Saturation 98% 06/16/2024 1:30 PM SENIOR ENGINEER Inhaled Oxygen Concentration - - Weight 73.9 kg (163 lb) 06/16/2024 11:50 AM SENIOR ENGINEER Height 165.1 cm (5' 5) 06/16/2024 11:50 AM SENIOR ENGINEER Body Mass Index 27.12 06/16/2024 11:50 AM SENIOR ENGINEER Plan of Treatment Health Maintenance Due Date Last Done Comments Tdap 2005 HIV for age 15-65 2009 Hepatitis C screening for ag e 18-79 2012 Hepatitis B series for 19+ ( 1 of 3 - 19+ 3-dose series) 2013 Pneumococcal series for age 6-49 (1 of 2 - PCV) 2013 Tetanus booster 2014 Pap test for age 21-65 2015 Depression screening for age 12+ 03/08/2017 03/08/2016, 03/08/2016, 03/07/2016, Additional history exists BMI (ht and wt on same day) for age 18+ 05/27/2017 05/27/2016, 03/08/2016, 03/01/2016, Additional history exists COVID-19 vaccine series ( season) 2024 Influenza Vaccine (Season Ended) 2025 Insurance [employer] [id number] Advance Directives * Full Code (Latest Code Status on File) Date Activated Date Inactivated Comments 12/27/2021 8:26 PM 12/28/2021 1:36 PM Question Answer Comments Code Status Discussion: Reviewed Preferences Care Teams Quality Control Industrial Engineer Relationship Specialty Start Date End Date Meera Salter [id number] [place] [address] PCP - General Internal Medicine 08/27/18 Doron Restrepo MD [address] [place] [address] Neurology Neurology 02/21/16 Shakir Givens MD [address] [facility] [address] [place] [address] Rheumatology Rheumatology 08/27/16
--- OUTSIDE RECORDS SUMMARY | 2024-10-11 09:01 | XMS_ITS | Clinical Summary ---
Author Organization [place] Address [address] [place] [address] Care Team Providers Care Dealer Accounts Investigator Name Role Phone Meera Salter Sylvester Primary Care Provider [phone] Allergies Active Allergy Reactions Criticality Noted Date Comments Contrast Dye Itching 06/20/2017 Diclofenac 03/11/2016 Formaldehyde Itching,Swelling High 02/22/2013 Throat swelled Sulfa Antibiotics Hives 10/15/2011 Hydrocodone-Acetaminophen Hives 09/24/2012 Medications norethindrone-e thinyl estradiol-iron (ESTROSTEP FE) 1-20/1-30/1-35 MG-MCG TABS Take by mouth daily. Active albuterol (2.5 MG/3ML) 0.083% nebulizer solution Take 1 vial (2.5 mg) by nebulization every 6 hours as needed for shortness of breath / dyspnea or wheezing 75 mL 0 4 Active DULoxetine HCl (CYMBALTA PO) Take 40 mg by mouth 2 times daily Active Cholecalciferol (VITAMIN D3 PO) Take by mouth daily Active gabapentin (NEURONTIN) 300 MG capsule Take 1 capsule (300 mg) by mouth At Bedtime 7 capsule 0 6 Active Additional Information Patient taking differently: 600 mgOral3 TIMES DAILY, Reported on 10/30/2015 Active Problems Problem Noted Date Diagnosed Date Bat bite wound 10/18/2018 Immunizations Immunization Administration Dates Next Due Rabies Vaccine (Imovax) 11/01/2018 Rabies Vaccine (Rabavert) 10/25/2018,10/21/2018, 10/18/2018 Social History Tobacco Use Types Packs/Day Years Used Date Smoking Tobacco: Never Smokeless Tobacco: Never Tobacco Cessation:Counseling Given: No Alcohol Use Standard Drinks/Week Comments No 0 (1 standard drink = 0.6 oz pur e alcohol) Adolescent Education Answer Date Record ed Getting School Help Needed Not on file 02/08 Comments No Sex and Gender Information Value Date Recorded Sex Assigned at Not on file Legal Sex Female 3:43 AM [employer]P SAL[employer] Gender Identity Not on file Sexual Orientation Not on file Last Filed Vital Signs Vital Sign Reading Time Taken Comments Blood Pressure 114/66 12/13/2018 5:00 AM CDT Pulse 102 12/13/2018 5:00 AM CDT Temperature 36.2 C (97.2 F) 12/13/2018 3:15 AM CDT Respiratory Rate 15 12/13/2018 5:15 AM CDT Oxygen Saturation 98% 12/13/2018 5:15 AM CDT Inhaled Oxygen Concentration - - Weight 84.1 kg (185 lb 6.5 oz) 10/18/2018 9:36 A M CDT Height 165.1 cm (5' 5) 10/18/2018 9:36 AM CDT Body Mass Index 30.85 10/18/2018 9:36 AM CDT Plan of Treatment Not on file Insurance [place] [address] [id number] [facility] Care Teams Dealer Accounts Investigator Relationship Specialty Start Date End Date Meera Salter PCP - General 10/18/18
[2024-10-11 09:11] LABS: Hematocrit 37.8 % (33.0-51.0); Hemoglobin* 13.1 gm/dL (12.0-16.0); Mean Corpuscular HGB Conc 35 gm/dL (32-36); Mean Corpuscular Hemoglobin 31 pg (26-34); Mean Corpuscular Volume 89 fL (80-100); Platelet Count* 176 K/uL (140-440); Red Blood Count 4.26 m/uL (4.00-5.20); White Blood Count* 5.79 K/uL (4.50-11.00)
[2024-10-11 09:12] LABS: Basophils Absolute Auto 0.03 K/uL (0.00-0.30); Basophils Percent Auto 0.5 % (0.0-3.0); Eosinophils Absolute Auto 0.11 K/uL (0.00-0.50); Eosinophils Percent Auto 1.9 % (0.0-7.0); Lymphocytes Absolute Auto 1.98 K/uL (0.90-2.90); Lymphocytes Percent Auto 34.2 % (20-44); Monocytes Percent Auto 7.6 % (0.0-11.0); Neutrophils Absolute Auto 3.23 K/uL (1.7-7.0); Neutrophils Percent Auto 55.8 % (42.0-72.0); RDW Coefficient of Variation % 11.5 % (11.5-15.5)
[2024-10-11 09:18] LABS: Slide Review Reflex No
[2024-10-11 09:33] LABS: Chloride* 103 mmol/L (96-114); Potassium* 4.2 mmol/L (3.6-5.1); Sodium* 139 mmol/L (135-149)
[2024-10-11 09:36] LABS: Blood Urea Nitrogen* 8 mg/dL (5-24); Creatinine* 0.7 mg/dL (0.5-1.5); Est. Creatinine Clearance* 105.74; Estimated Glomerular Filt Rate 119 ml/min
[2024-10-11 09:37] LABS: Anion Gap 8 mEq/L (7-15); Calcium* 9.2 mg/dL (8.4-10.6); Carbon Dioxide* 28 mmol/L (20-32); Glucose* 78 mg/dL (60-115)
[2024-10-11 09:42] LABS: C Reactive Protein* < 0.5 mg/dL (0.5-1.0)
[2024-10-11 10:11] VITALS: BP 120/84; PULSE 73; RESP 16; O2SAT 100
== END 2024-10-11 10:55 | disposition home or self-care (01) ==
PROVIDERS: Emergency Provider Emergency Medicine Emergency Medical Services
DX: R10.9 Unspecified abdominal pain (principal); K59.00 Constipation, unspecified
CPT/HCPCS: 36415; 74176; 80048; 85025; 86140; 99284

== ENCOUNTER 2025-01-24 13:14 | Emergency (ER) | payer OTHER, SELFPAY ==
[2025-01-24] VITALS (7 sets, daily range): BP systolic 119–151; BP diastolic 74–106; PULSE 76–105; RESP 13–18; TEMP 36.4; O2SAT 99–100; BMI 27.0
--- OUTSIDE RECORDS SUMMARY | 2025-01-24 13:18 | XMS_ITS | Clinical Summary ---
Author Organization [facility] Address [address] , [address] [place] [address] Phone Care Team Providers Care Tire And Tube Repairer Name Role Phone Micaela Long Unavailable [phone] Conditions or Problems Problem Name Problem Code Onset Date Status Entry Date Provider Comment Standard Description Annotate Migraine headache with aura 5251495 (SNOMED CT) 07/06 Active 07/06 Cece Sears MD Migraine with aura Migraine w/out aura 85635937 (SNOMED CT) 07/06 Active 07/06 Cece Sears MD Migraine without aura Hypersomnia (ESS 19; NL MSLT x2; 2022---20 msl on 5 naps) G47.11 (ICD-10-CM ) 10/16 Active 10/16 Edy Brooks Jr, MD 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 (PSG w/29 arousals/hr) G47.00 (ICD-10-CM ) Active Edy Brooks Jr, MD Insomnia, unspecified Conversion disorder with mixed symptom presentation ([place] Dx) 78958555 (SNOMED CT) 10/16 Active 10/16 Edy Brooks Jr, MD Dissociative disorder Nonrestorati ve sleep G47.9 (ICD-10-CM ) 10/16 Active 10/16 Edy Brooks Jr, MD Sleep disorder, unspecified Excessive Daytime Sleepiness 649676191 (SNOMED CT) 10/30 Resolved 10/30 Edy Brooks Jr, MD Drowsy Snoring 08535835 (SNOMED CT) 12/01 Resolved 12/02 Edy Brooks Jr, MD Snoring Sleep disturbance, NOS 49243924 (SNOMED CT) 12/02 Resolved 12/03 Edy Brooks Jr, MD Dyssomnia Hypersomnia (ESS 19; NL MSLT 2018) 73578123 (SNOMED CT) 10/16 Inactive 10/16 Edy Brooks Jr, MD Hypersomnia 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 aura, 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 G43.719 (ICD-10-CM ) 06/03 Active 06/03 Doron Restrepo MD Chronic migraine without aura, intractable, without status migrainosus TIA 045550066 (SNOMED CT) 01/08 Active 01/08 Doron Restrepo MD Transient cerebral ischemia indeterminat e stereotypic spells R40.4 (ICD-10-CM ) 07/23 Active 07/23 Doron Restrepo MD Transient alteration of awareness Sleep disturbance, NOS 45226150 (SNOMED CT) 12/02 Removed 12/03 Venecia Henriquez MD Dyssomnia Snoring 04961312 (SNOMED CT) 12/01 Removed 12/02 Venecia Henriquez MD Snoring Excessive Daytime Sleepiness 906403565 (SNOMED CT) 10/30 Removed 10/30 Venecia Henriquez MD Drowsy Fatigue, chronic 20763232 (SNOMED CT) 10/30 Active 10/30 Venecia Henriquez MD Fatigue Paresthesias 45273523 (SNOMED CT) 09/17 Active 09/17 Doron Restrepo MD Paresthesia Somatization disorder 703609170 (SNOMED CT) 09/23 Active 10/14 Milagros Landrum PhD Somatization disorder Leg pain 23447056 (SNOMED CT) 10/09 Active 10/09 Doron Restrepo MD Pain in lower limb Headache 64129593 (SNOMED CT) 09/07 Active 09/08 Ian Zuniga MD Headache Mixed urinary incontinence 409901871 (SNOMED CT) 09/07 Active 09/08 Ian Zuniga MD Mixed urinary incontinence Lumbar disc herniation 52202799 (SNOMED CT) 09/07 Active 09/08 Ian Zuniga MD Displacement of lumbar intervertebral disc without myelopathy REFLEX SYMPATHETIC DYSTROPHY OF THE LOWER LIMB 778071754 (SNOMED CT) 06/20 Active 06/21 Ian Zuniga MD Reflex sympathetic dystrophy of lower extremity Medications Medication Instructions Start Date Stop Date Generic Name NDC Provider BELSOMRA 10 MG TABS take 1 tab by mouth 30 minutes before bedtime. suvorexant [id number] Katrina Amado FOUR SLIDE OPERATOR BELSOMRA 10 MG TABS take 1 tab by mouth 30 minutes before bedtime. 06/10 suvorexant 93986225016 Margie Naqvi PA-C OMEPRAZOLE 20 MG CPDR 1 cap daily omeprazole 13961387018 Margie Naqvi PA-C DULOXETINE HCL 60 MG CPEP 1 cap BID duloxetine 23538512995 Margie Naqvi PA-C AJOVY 225 MG/1.5ML SOAJ Inject 1 pen injector subcutaneously once a month 05/13 fremanezumab-[facility] [id number] Margie Naqvi PA-C BUSPIRONE HCL 10 MG TABS 1 tab BID buspirone 88557003694 Margie Naqvi PA-C GABAPENTIN 300 MG CAPS 1 cap BID gabapentin 15923866821 Margie Naqvi PA-C MOTEGRITY 2 MG TABS 1 tab daily prucalopride 39238255933 Margie Naqvi PA-C WEGOVY 1.7 MG/0.75ML SOAJ 2.4 mg weekly semaglutide (weight loss) 44650377655 Margie Naqvi PA-C MELATONIN ER 3 MG CR-TABS take 1 tab at bedtime 06/25 melatonin 28810429022 Margie Naqvi PA-C CONTROL PILL 10/16 CONTROL PILL Edy Brooks Jr, MD PRILOSEC CAPSULE DELAYED RELEASE 10/16 PRILOSEC CAPSULE DELAYED RELEASE Edy MCY 0.5 MG/0.5ML SOAJ 10/16 semaglutide (weight loss) 42067912480 Edy Brooks Jr, MD BUSPIRONE HCL 10 MG TABS 1 three times a day 20 mg BID 10/16 buspirone 10590351434 Edy Brooks Jr, MD Cymbalta 60 mg capsule,delayed release(DR/EC) 1 twice a day 10/16 duloxetine 11160385312 Edy Brooks Jr, MD GABAPENTIN 300 MG CAPS 1 twice a day 10/16 gabapentin 09926288981 Edy Brooks Jr, MD GABAPENTIN 300 MG CAPS 11/12 gabapentin 64824031067 Edy Brooks Jr, MD BUSPIRONE HCL 10 MG TABS 05/13 buspirone 47447108517 Edy Brooks Jr, MD OMEPRAZOLE 20 MG CPDR 11/12 omeprazole 41016993954 Edy SAVAGEGOVY 1.7 MG/0.75ML SOAJ 05/13 semaglutide (weight loss) 45820503056 Edy Brooks Jr, MD MOTEGRITY 2 MG TABS 05/13 prucalopride 61808560484 Edy Brooks Jr, MD NORETHINDRONE 0.35 MG TABS norethindrone (contraceptive) 11661127881 Edy Brooks Jr, MD DULOXETINE HCL 60 MG CPEP 05/13 duloxetine 41582953108 Edy Brooks Jr, MD PROVIGIL 100 MG TABS Take 1 tablet by mouth once a day 07/11 modafinil 70431097365 Margie Rafia Cherucheril PA-C BUSPIRONE HCL 10 MG TABS 1 three times a day 20 mg BID 10/16 buspirone 03135086237 Margieelizabeth Hickmanaravindil PA-C PREDNISONE 20 MG TABS Day #1 and #2 take 2 pills tid. Day #3 and #4 take 2 pills bid. Day #5 and #6 take 1 pill qAM. Then stop. 07/10 prednisone 81371090818 Margie Rafia Cheraravindil PA-C WEGOVY 0.5 MG/0.5ML SOAJ 10/16 semaglutide (weight loss) 62283897675 Margie Rojasil PA-C PROBIOTIC (LACTOBACILLUS) CAPS lactobacillus acidophilus 09979957371 Margie Rojasil PA-C CALCIUM ASCORBATE 500 MG TABS ascorbate calciu m (vitamin c) 58387381544 Margie Rojasil KIN-C MULTI-VITAMINS TABS multivitamin 55179970065 Margie Rafiaoscar Rojasil PA-C LACTULOSE 10 GM/15ML SOLN prn lactulose 01871405441 Margie Rojasil PA-C MIRALAX 17 GM/SCOOP POWD prn polyethylene glycol 3350 56262849105 Margie Rojasil PA-C Fleet Enema 19-7 gram/118 mL enema prn sodium phosphates 44276309577 Margie Naqvi PA-C KIRK ALLERGY 180 MG TABS fexofenadine 81339833335 Margie Rojasil PA-C PROVIGIL 200 MG TABS Take 1 once a day 07/10 modafinil 72541213075 Margie Rojasil PA-C BENADRYL ALLERGY TABLET BENADRYL ALLERGY TABLET Margie Rojasil PA-C BUSPIRONE HCL 5 MG TABS 1 three times a day 07/10 buspirone 34666475087 Margie Hickmanbenitez TUTTLE GABAPENTIN 300 MG CAPS 1 twice a day 711 gabapentin 31869373736 Margie Hickmanbenitez TUTTLE Cymbalta 60 mg capsule,delayed release(DR/EC) 1 twice a day 6/ duloxetine 02393977928 Margie Rojasharleen TUTTLE AJOVY 225 MG/1.5ML SOAJ Inject 1 pen injector subcutaneously once a month 05/13 fremanezumab-[facility] 99001237289 Margie Hickmanbenitez TUTTLE PROVIGIL 100 MG TABS Take 1 tablet by mouth once a day 07/11 modafinil 14613414850 Margie Hickmanbenitez TUTTLE PREDNISONE 20 MG TABS Day #1 and #2 take 2 pills tid. Day #3 and #4 take 2 pills bid. Day #5 and #6 take 1 pill qAM. Then stop. 3 prednisone 42350273118 Doron Restrepo MD PROVIGIL 200 MG TABS take 1 pill daily 308 MODAFINIL 22475040244 Doron Restrepo MD BENADRYL ALLERGY TABS 308 DIPHENHYDRAMINE HCL TABS 85183319372 Venecia Henriquez MD MAGNESIUM CAPSULE MAGNESIUM OXIDE CAPS 50781272912 Venecia Henriquez MD KIRK ALLERGY 180 MG TABS 308 FEXOFENADINE HCL 41853422512 Doron Restrepo MD BUSPIRONE HCL 5 MG TABS 1 pill tid 3 BUSPIRONE HCL 38784815932 Doron Restrepo MD GABAPENTIN 300 MG CAPS 1 pill twice daily 7 GABAPENTIN 60422415067 Doron Restrepo MD LYRICA 150 MG CAPS 1 bid 16 PREGABALIN 37873683102 Doron Restrepo MD PRILOSEC CAPSULE DELAYED RELEASE 0 10/16 OMEPRAZOLE CPDR 93000433862 Doron Restrepo MD CYMBALTA 60 MG ORAL CAPSULE DELAYED RELEASE PARTICLES 1 bid 0 08 DULOXETINE HCL 81254419805 Doron Restrepo MD LYRICA 150 MG CAPS 1 bid 0 08/17 PREGABALIN 68783413844 Doron Restrepo MD NEURONTIN 300 MG CAPS 1 pill 3 times daily 06/02 GABAPENTIN 57866492146 Doron Restrepo MD CYMBALTA 20 MG ORAL CAPSULE DELAYED RELEASE PARTICLES 2 pills twice daily 06/02 DULOXETINE HCL 77515472833 Doron Restrepo MD KIRK ALLERGY 180 MG TABS 1 daily 06/02 FEXOFENADINE HCL 16826029472 Doron Restrepo MD LINZESS CAPS 1 daily 06/02 LINACLOTIDE CAPS 01109727232 Doron Restrepo MD CONTROL PILL 10/16 CONTROL PILL Doron Restrepo MD LINZESS CAPS 1 daily 06/02 LINACLOTIDE CAPS 69715314882 Doron Restrepo MD KIRK ALLERGY 180 MG TABS 1 daily 06/02 FEXOFENADINE HCL 31008295516 Doron Restrepo MD CYMBALTA 20 MG ORAL CAPSULE DELAYED RELEASE PARTICLES 2 pills twice daily 06/02 DULOXETINE HCL 87281643902 Doron Restrepo MD AMITRIPTYLINE HCL 10 MG TABS Week #1 take 1 in PM, Week #2 take 2 in PM, then Week #3 and on take 3 in PM 12/25 AMITRIPTYLINE HCL 66035300232 Doron Restrepo MD AMITRIPTYLINE HCL 10 MG TABS Week #1 take 1 in PM, Week #2 take 2 in PM, then Week #3 and on take 3 in PM 12/25 AMITRIPTYLINE HCL 29579447704 Doron Restrepo MD NEURONTIN 300 MG CAPS 1 pill 3 times daily 06/02 GABAPENTIN 03677451559 Doron Restrepo MD NEURONTIN 300 MG CAPS 2 pills 3 times daily 11/13 GABAPENTIN 70965031760 Doron Restrepo MD AMITRIPTYLINE HCL 10 MG TABS 3 q hs 10/20 AMITRIPTYLINE HCL 38340086380 Katrina Ibrahim RN NEURONTIN 300 MG CAPS 2 bid 10/09 GABAPENTIN 97315331368 Ian Zuniga MD NEURONTIN 300 MG CAPS 1 qhs x 1wk then 1 bid 09/15 GABAPENTIN 13759156351 Ian Zuniga MD AMITRIPTYLINE HCL 10 MG TABS 3 q hs 10/20 AMITRIPTYLINE HCL 92573412482 Ian Zuniga MD AMITRIPTYLINE HCL 10 MG TABS 1 qhs x 10d then 2 qhs 06/27 AMITRIPTYLINE HCL 53147523797 Ian Zuniga MD Medications Administered No information [...] REFERRING PHYS... SMOK STATUS never smoker Toba partner [facility]co smoking status Replaced Document: (P) PROTE IN, [...] [Mass/volume] in Serum or Plasma by Electrophoresis [id number] * g/dL beta 2 g lobulin [id number] * g/dL beta 1 g lobulin ALPHA [...] 06/02/17 11:43- 06/02/17 11:43 REFERRING PHYSICIAN NAME... [facility] Fall Risk Screening completed. Fall risk assessment Replaced Document: (P) PARAN EOPLASTIC AB EVAL W/REFL TITER/WB, BASIC, STRIATED ... ACETCHBND AB * acetylch oline binding antibody VOLTGATEDCC * Voltage G ated Calcium Channel Antibodies Replaced Document: (P) CREAT INE KINASE, TOTAL, SED RATE BY MODIFIED PHILIP, ... COPPER SER * ug/mL copper, bl ood VIT B1 PLSM * ug/L Vitamin B 1 (thiamine), plasma VIT B6 * VITAMIN B6, P LASMA VITD 25OH TO * VITAMIN D, 25 OH, TOTAL FERRITIN * ng/mL Ferritin [Mass/volume] in Serum or Plasma [id number] * GE use only - for LinkLogic [...] contact Lab Report: DRUG SCREEN, COM PREHENSIVE (URINE)---[facility] DRUG SCREEN DRUG(S) DETECTED: A drug screen, silvestre agee, qualitative PLEASE NOTE * Please no te: Office Visit: JANNY FSLE; katina zepeda s/e; retry Cecesoa 5; psych; sleep psycholX MEDS REVIEW Done [...] Sleep JANNY Pending order Follow up Sleep JANNY Pending Order exclud ed from report: Pending [...] up Sleep ORDERS Follow up Sleep JANNY CPT-47456 Multiple Sleep Latency Testing - 4+ naps (71251) CPT-72228 Actigraphy tstg rec analysis & interp min 3-days (88484) CPT-26534 PSG, 4+ parameters w/ tech - 6yrs or trena r (97277) ORDERS Follow up JANNY in clinic or telemedicine 2 ORDERS Patient Instructions ORDERS 2 weeks Actigraphy [facility] w/ Sleep Journals (Call Sleep Lab) ORDERS Overnight PSG w/ MSL T at end of the 2 week actigraphy (Call Sleep Lab) ORDERS Follow up Sleep JANNY telemedicine ORDERS Sleep NEW Consult w/ Sleep Physician 2022 ORDERS Follow up JANNY in clinic or telemedicine 2 ORDERS Echocardiogram Complete with Bubble w/o C ontrast ORDERS Telemedicine Follow up 02/24 ORDERS Follow up [id number] MRI-Brain W/WO ORDERS EEG Routine ORDERS Patient Instructions SCT-[id number] Documentation of current medicatio ns ORDERS Follow up CPT-79861 Multiple Sleep Laten cy Testing - 4+ naps (18772) CPT-23154 PSG, 4+ parameters w / tech - 6yrs or older (15960) CPT-09472 Actigraphy tstg rec analysis & interp min 3-days (42205) ORDERS Patient Instructions ORDERS Sleep Study - MSLT 8 ORDERS Actigraphy Watch - 2 week 20 22/10/27 SCT-[id number] Consult ORDERS EMG bilateral upper ext 2018 CPT-31083 Nerve Conduction 9-10 studies CPT-65077 EMG with NCS (5+ muscles) - 2 limbs 09/19 SCT-198813219 Consult SCT-[id number] Documentation of current medicatio ns ORDERS CK (Creatine Kinase) Total 2 019 ORDERS ESR (Sedimentation Rate) 201 01/08/16 ORDERS [...] 2018 ORDERS Ferritin Serum ORDERS Patient Instructions SCT-[id number] Consult CPT-54615 Neuropsych assmnt w/ prov 4 hr CPT-0993363 Neuropsych assmnt w/ tech 2 hr CPT-0235795 Neuropsych test by computer ORDERS Neuropsych Testing 9 CPT-58507 Skin Biopsy, 1 lesion 06/17 CPT-40534 Skin Biopsy, addtional lesion SCT-534966831 Consult ORDERS Patient Instructions ORDERS Paraneoplastic AutoAb Eval 2 SCT-[id number] Documentation of current medicatio ns SCT-875738027 Other Referral ORDERS Patient Instructions SCT-[id number] Documentation of current medicatio ns SCT-778279845 Consult SCT-[id number] Consult SCT-[id number] Documentation of current medicatio ns ORDERS Follow up SCT-[id number] Documentation of current medicatio ns CPT-37500 Brief emotional/behavioral assessment 201 10/10/22 SCT-[id number] Documentation of current medicatio ns CPT-81829 Brief emotional/behavioral assessment 201 10/10/11 CPT-V4519E ProHance Gadolinium- based MR Contrast - 20 ml vial CPT-79462 MRI Brain W/WO ORDERS Lyme Total Ab w/Refl ex (reflex to Western Blot) ORDERS t-Transglutaminase (tTG) IgA ORDERS Treponemal IgG (Trep onema Pallidum IgG ALEX) ORDERS Vitamin B1 (Thiamine) 10/09 ORDERS Vitamin B6 (Pyridoxine) 2015 [id number] MRI-Brain W/WO ORDERS Follow up [facility]-[id number] Documentation of current medicatio ns ORDERS Hemoglobin A1C ORDERS Immunofixation Serum w/Electrophoresis 20 18/10/06 ORDERS Vitamin B12 ORDERS Vitamin D 25 Hydroxy ORDERS Hepatitis C Ab (HCV) ORDERS Rheumatoid (RA) Factor 10/09 ORDERS OMAR ORDERS Copper ORDERS Sjogren's Ab - SSA/SSB (ANTI-Ro/ANTI-La) ORDERS Zinc SCT-[id number] Other Referral Vital Signs Date Name Value [...]
--- OUTSIDE RECORDS SUMMARY | 2025-01-24 13:19 | XMS_ITS | Encounter Summary ---
[facility] Address [address], [place] [address] Care Team Providers Care Informatica Mdm Developer Name Role Phone Meera Salter MD Primary Care Provider Reason for Visit * Reason Comments Symptoms Encounter Details Date Type Department Care Team (Late st Contact Info) Description 12/20/2015 Telephone [facility] [address] [place] [address] [address] [place] [address] Frieda Barbour MD [address] [place] [address] Symptoms Social History Tobacco Use Types Packs/Day Years Used Date Smoking Tobacco: Never Assessed Comments No Sex and Gender Information Value Date Recorded Sex Assigned at Not on file Legal Sex Female 4:54 AM CDT Gender Identity Not on file Sexual Orientation Not on file documented as of this encounter Nursing Notes * Rafia Lainez, TONEY - 12/25/2015 11:04 AM CDT Left another msg to call clinic. * Alysa Crowder RN - 12/21/2015 8:33 AM CDT lm to return call * Frieda Barbour MD - 12/21/2015 7:41 AM CDT She needs a culture. She has an extensive urologic history and I do not feel comfortable providing empiric antibiotics. * Alysa Crowder RN - 12/20/2015 4:34 PM CDT Reason for Call: Clinician input needed on symptom based concern. Next Steps: Document further recommendations and route to appropriate person or pool. Caller IS expecting a call back from Care Team. Additional Information: Pt. is wanting you to know that she had a lot of burning back pain during her pelvic US yesterday. Today she feels like she has a bladder infection. Could she get an RX for this? Please advise Future Appointments Date Time Provider Department Center 12/22/2015 3:00 PM Andrews Larry, PHD, LP P3800 COU P3800 12/29/2015 11:15 AM Kassandra Leon, PT TIAN PT T[facility] documented in this encounter Miscellaneous Notes * Patient Email (Converted) - Devika Howard Provider - 12/27/2015 10:02 AM CDT UTI From User: FRIDA SCOTT, We have been unable to reach you by phone. Please call the Nurse Line at [phone]. Thank you, TONEY [facility] Nurse Line [phone] RONMENTAL PLANNER documented in this encounter Plan of Treatment Upcoming Encounters Date Type Department Care Team (Late st Contact Info) Description 01/27/2025 3:00 PM CDT Telemedicine [facility] [place] [address] [place] [address] Atiya Mckeon, STABLE HELPER, MARKET SALES MANAGER [address] [place] [address] 12/01/2025 9:30 AM CDT Appointment [facility] [address] [facility] [place] [address] [place] [address] [address] [address] documented as of this encounter Visit Diagnoses Not on filedocumented in this encounter Additional Health Concerns Infection Onset Date Last Indicated Resolved Time R/O COVID19 06/16/2020 06/16/2020 06/17/2020 1:49 AM ENVIRONMENTAL PLANNER R/O COVID19 04/09/2021 04/09/2021 04/10/2021 2:08 AM ENVIRONMENTAL PLANNER COVID19 04/09/2021 04/09/2021 04/29/2021 3:17 AM ENVIRONMENTAL PLANNER documented as of this encounter Care Teams Informatica Mdm Developer Relationship Specialty [place] [address] [address] [address] PCP - General Internal Medicine 07/21/18 documented as of this encounter
--- OUTSIDE RECORDS SUMMARY | 2025-01-24 13:19 | XMS_ITS | CCD ---
Author Name Interface, [id number] Address [address] [address] [facility] Address [facility] [address] Reason for Visit Social History
--- OUTSIDE RECORDS SUMMARY | 2025-01-24 13:19 | XMS_ITS | Encounter Summary ---
Author Organization [facility] Address [address], [place] [address] Care Team Providers Care Desk Officer Name Role Phone Meera Salter MD Primary Care Provider Reason for Visit * Reason Comments Prior Authorization Request Encounter Details Date Type Department Care Team (Late st Contact Info) Description 12/03/2024 Telephone [facility] [address] [place] [address] Meera Salter MD [address] [place] [address] Prior Authorization Request Social History Tobacco Use Types Packs/Day Years Used Date Smoking Tobacco: Never Passive Smoke Exposure: Never Smokeless Tobacco: Never Alcohol Use Standard Drinks/Week Comments Yes 0 (1 standard drink = 0.6 oz pur e alcohol) Rare maybe 1 a month Humiliation, Afraid, Rape, and Kick questionnair e Answer Date Recorded Fear of Current or Ex-Partner Not on file Emotionally Abused Not on file 08/14/2023 Within the last year, have y ou been kicked, hit, slapped, or otherwise physically hurt by your partner or ex-partner? No 08/14/2023 Within the last year, have y ou been raped or forced to have any kind of sexual activity by your partner or ex-partner? No 08/14/2023 PHQ-2 Answer Date Recorded PHQ-2 Score 3 11/30/2024 Financial Resource Strain Answer Date R ecorded Is it hard for you to pay fo r the very basics like food, housing, medical care or heating? Yes 12/13/2023 Food Insecurity Answer Date Recorded Does your food run out before you have the money to buy more? No 12/13/2023 Transportation Needs Answer Date Record ed Does a lack of transportatio n keep you from your medical appointments or from getting your medications? 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 Ozempic is denied by plan. Patient must have type 2 diabetes diagnosis. * Christen Shaw MA - 12/31/2024 12:51 PM CDT In review of chart, Ozempic was d/c and new Rx was sent in for Wegovy on 11/30/2024. * Dilma Huston - 12/03/2024 12:20 PM CDT Images from the original note were not included. Patient's pharmacy benefit information updated via portal * Jennifer Champion - 12/03/2024 10:14 AM CDT Prior authorization has been initiated for semaglutide (OZEMPIC) 8 MG/3ML SOPN injection. Your Prior Authorization has been started. Please allow up to 6 weeks to complete processing. We appreciate your patience, and you will be notified once an update is available. documented in this encounter Plan of Treatment Upcoming Encounters Date Type Department Care Team (Late st Contact Info) Description 01/27/2025 3:00 PM CDT Telemedicine [facility] [address] [place] [address] Atiya Mckeon, DECORATIVE CUTTING MACHINE TENDER, SALES REPRESENTATIVE [employer] [address] [place] [address] 12/01/2025 9:30 AM CDT Appointment [facility] [address] [place], [place] [address] [place] [address] [place] [address] documented as of this encounter Visit Diagnoses Not on filedocumented in this encounter Care Teams Desk Officer Relationship Specialty [place] [address] [address] [id number] PCP - General Internal Medicine 07/21/18 documented as of this encounter
--- OUTSIDE RECORDS SUMMARY | 2025-01-24 13:19 | XMS_ITS | Encounter Summary ---
Author Organization [facility] Address [address] [place] [address] Care Team Providers Care Automation Developer Name Role Phone Meera Salter MD Primary Care Provider [phone] Encounter Details Date Type Department Care Team (Late st Contact Info) Description 01/11/2025 E-Visit Endoscopy at [facility] at [address] 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 Not on file Not on file documented as of this encounter Plan of Treatment Upcoming Encounters Date Type Department Care Team (Late st Contact Info) Description 01/27/2025 3:00 PM CDT Telemedicine [address] [address] Atiya Mckeon, ENGINEER REMOTE CONTROL DIESEL, MEDICAL ENGINEER [address] [place] [address] 12/01/2025 9:30 AM CDT Appointment [facility] [address] [place], [place] [address] [place] [address] [place] [phone] documented as of this encounter Visit Diagnoses Not on filedocumented in this encounter Care Teams Automation Developer Relationship Specialty [place] [address] [place] [phone] PCP - General Internal Medicine 07/21/18 documented as of this encounter
--- OUTSIDE RECORDS SUMMARY | 2025-01-24 13:19 | XMS_ITS | Encounter Summary ---
Author Organization [facility] Address [address] [place] [address] Care Team Providers Care Outside Sales Account Executive Name Role Phone Meera Salter MD Primary Care Provider [phone] Reason for Visit * Reason Comments Refill norethindrone, contr aceptive, (MICRONOR) 0.35 MG tablet [Pharmacy Med Name: norethindrone (contraceptive) 0.35 mg tablet (MICRONOR (28))] Encounter Details Date Type Department Care Team (Late st Contact Info) Description 01/21/2025 Refill [place] [facility] Obstetrics/Gynecology [address] [facility] 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 States she is not taking this any longer. Had IUD inserted 08/2024. Request refused. Requested Prescriptions Refused Prescriptions Disp Refills norethindrone, contraceptive, (MICRONOR) 0.35 MG tablet [Pharmacy Med Name: norethindrone (contraceptive) 0.35 mg tablet (MICRONOR (28))] 90 Tablet 2 Sig: Take 1 Tablet (0.35 mg) by mouth once daily. Refused By: BETO RAY Reason for Refusal: Med replaced or stopped * Georges Brown Xrwcomm - 01/21/2025 6:10 AM CDT norethindrone, contraceptive, (MICRONOR) 0.35 MG tablet [Pharmacy Med Name: norethindrone (contraceptive) 0.35 mg tablet (MICRONOR (28))] Medication started: 04/30/2019 Last ordered by GRADY GUERRERO: 01/21/2024 (366 days ago) QTY: 90, Refills: 3, Sig: take 1 tablet (0.35 mg) by mouth daily. (changed but equivalent) -> This medication was discontinued on 11/30/2024 by MEERA SALTER -> Refill x 9 months, qty: 90, refills: 2 (until due for an office visit) Last qualifying visit: 09/24/2024 (in [facility] with GRADY GUERRERO) Next scheduled visit: None [employer] Emb[employer]ded Refills, Reference: [id number], 01/21/2025 6:09:30 AM CDT, Pool: ROLANDO TAVAREZ ([id number]) documented in this encounter Plan of Treatment Upcoming Encounters Date Type Department Care Team (Late st Contact Info) Description 01/27/2025 3:00 PM CDT Telemedicine [address] [address] Atiya Mckeon, POULTRY EVISCERATOR, HAND NAILER [address] [place] [address] 12/01/2025 9:30 AM CDT Appointment [facility] [address] [place], [place] [address] [place] [address] [address] [id number] documented as of this encounter Visit Diagnoses Not on filedocumented in this encounter Care Teams Outside Sales Account Executive Relationship Specialty [place] [address] [address] [id number] PCP - General Internal Medicine 07/21/18 documented as of this encounter
--- OUTSIDE RECORDS SUMMARY | 2025-01-24 13:19 | XMS_ITS | Encounter Summary ---
Author Organization [facility] Address [address] [address] Care Team Providers Care It Operations Specialist Name Role Phone Meera Salter MD Primary Care Provider [phone] Encounter Details Date Type Department Care Team (Late st Contact Info) Description 11/18/2024 [facility] [address] [address] Ivory Ramos, PharmD [address] [place] [id number] Social History Tobacco Use Types Packs/Day Years Used Date Smoking Tobacco: Never Passive Smoke Exposure: Never Smokeless Tobacco: Never Alcohol Use Standard Drinks/Week Comments Yes 0 (1 standard drink = 0.6 oz pur e alcohol) Rare Humiliation, Afraid, Rape, and Kick questionnair e [...] 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 [address] [place] [address] Atiya Mckeon, OBIEE REPORT DEVELOPER, SUPERVISOR UNLOADING [address] [place] [address] 12/01/2025 9:30 AM CDT Appointment [facility] [address] [place], [place] [phone] [place] [address] [place] [id number] documented as of this encounter Visit Diagnoses Not on filedocumented in this encounter Care Teams It Operations Specialist Relationship Specialty [place] [address] [address] [place] [id number] PCP - General Internal Medicine 07/21/18 documented as of this encounter
--- OUTSIDE RECORDS SUMMARY | 2025-01-24 13:19 | XMS_ITS | Clinical Summary ---
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
--- OUTSIDE RECORDS SUMMARY | 2025-01-24 13:19 | XMS_ITS | Encounter Summary ---
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 If they would like to talk about something else at the up coming visit it can be switched to an office visit. Please have patient double check with their insurance to make sure a physical is covered at this time. If theyneed help rescheduling they can do that at [phone] or online via [employer]. and [employer] message left regarding clarification. documented in this encounter Plan of Treatment Upcoming Encounters Date Type Department Care Team (Late st Contact Info) Description 01/27/2025 3:00 PM CDT Telemedicine [facility] [address] [place] [address] Atiya Mckeon, SHOE IRONER, DELIVERY TRUCK DRIVER [address] [place] [address] 12/01/2025 9:30 AM CDT Appointment [facility] [address] [facility] [place] [address] [place] [address] [address] [place] [id number] documented as of this encounter Visit Diagnoses Not on filedocumented in this encounter Care Teams Emergency Room Tech Relationship Specialty [place] [address] [place] [address] PCP - General Internal Medicine 07/21/18 documented as of this encounter
--- OUTSIDE RECORDS SUMMARY | 2025-01-24 13:19 | XMS_ITS | Clinical Summary ---
Author Organization [facility] Address [address], [place] [address] Care Team Providers Care Electric Power Line Examiner Name Role Phone Meera Salter MD Primary Care Provider [phone] Source Comments You are receiving this document as you are listed as the primary care provider,follow-up provider, or the patient has been referred to you for consultation.This is in compliance with the Medicare andMedicaid EHR Incentive Program,which states Providers who transition their patient to another setting of careor provider of care or refers their patient to another provider of care shouldprovide summary care record for each transition of care or referral. [employer] Allergies Active Allergy Reactions Criticality Noted Date Comments Diclofenac Throat Irritation 09/15/2015 Fluticasone Other, see comments 10/15/2012 PN: nose bleeds Formaldehyde Anaphylaxis High 02/13/2011 PN: patch test Hydrocodone Hives High 02/02/2016 Influenza Vaccines 01/27/2018 Throat closes from formaldehye Iodinated Contrast Media Hives,Itching High 06/20/2017 IV contrast Morphine And Codeine Hives High 05/02/2016 Other Hives High 03/18/2017 Iv contrast dye hives [place] Extract Hives 11/01/2014 Sulfa Antibiotics Hives High 07/08/2002 Medications fexofenadine (KIRK) 180 MG tablet Take 1 Tablet (180 mg) by mouth daily as needed. Active sodium phosphate (FLEET) 7-19 GM/118ML enema Insert 1 Enema rectally once as needed for Constipation (one emema 1-2 times a week, as needed) for up to 1 dose. 10 Each 1 11/29/19 21 Active lactulose (CEPHULAC) 10 GM/15ML solution Act namrata ascorbic acid (VITAMINC) 500 MG tablet Take 1 Tablet (500 mg) by mouth daily. Active omeprazole (PRILOSEC) 20 MG capsuleIndication s:Gastroesophagea l reflux disease without esophagitis Take 1 Capsule (20 mg) by mouth two times a day. Take 1 hour before a meal. 60 Capsule 12/12/19 23 Active BELSOMRA 10 MG TABS tablet Take 1 Tablet (10 mg) by mouth at bedtime as needed. 04/21/20 23 Active phenazopyridine (PYRIDIUM) 200 MG tabletIndications :Bladder pain Take 1 Tablet (200 mg) by mouth three times a day as needed for Pain (bladder pain/pain with urination). OTC 12/16/19 24 Active Additional Information Patient not taking.Reported on 11/30/2024 cholecalciferol (VITAMIND3) 25 MCG (1000 UT) capsule Take 1 Capsule (1,000 Units) by mouth daily. OTC 12/16/19 24 Active Additional Information Patient not taking.Reported on 11/30/2024 EPINEPHrine (EPIPEN) 0.3 MG/0.3ML injectionIndicati ons:History of anaphylaxis Inject 0.3 mL intramuscularly once for 1 dose. May repeat. 2 Each 1 03/17/20 24 Active polyethylene glycol (MIRALAX) 17 g packet Take 17 g by mouth daily as needed for Constipation. Active Senna 30 MG Take 1 Each by mouth every evening. Smooth Move Senna Tea Active semaglutide (OZEMPIC) 8 MG/3ML SOPN injectionIndicati ons:weight management Inject 2 mg subcutaneously once a week. Indications: weight management 9 mL 4 5 1:50 PM CDT 04/02/20 24 Active Additional Information Patient not taking.Reported on 11/30/2024 levonorgestrel (KYLEENA) 19.5 MG IUDIndications:En counter for insertion of intrauterine contraceptive device 1 Each by Intrauterine route continuous. 08/21/19 25 030 Active busPIRone (BUSPAR) 10 MG tabletIndications :Globus sensation Take 2 Tablets (20 mg) by mouth two times a day. 360 Tablet 3 12/01/19 25 Active DULoxetine (CYMBALTA) 60 MG delayed release capsuleIndication s:Chronic pain syndrome Take 1 Capsule (60 mg) by mouth two times a day. 180 Capsule 3 12/01/19 25 Active gabapentin (NEURONTIN) 300 MG capsuleIndication s:Chronic pain syndrome Take 1 Capsule (300 mg) by mouth two times a day. 180 Capsule 12/01/19 25 Active Prucalopride Succinate (MOTEGRITY) 2 MG TABSIndications:C onstipation due to neurogenic bowel Take 1 Tablet (2 mg) by mouth daily. 90 Tablet 3 12/01/19 25 Active semaglutide-weigh t management (WEGOVY) 2.4 MG/0.75ML pen injectionIndicati ons:Insulin resistance syndrome,PCOS (polycystic ovarian syndrome) (HRC),Reactive hypoglycemia (HRC),Overweight (BMI 25.0-29.9) (HRC) Inject 0.75 mL (2.4 mg) subcutaneously once every week. 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 The dysplasia is difficult to grade, but the P16 positive staining is supportive of high grade dysplasia. 12/2022: NILM, COLP & ECC neg 12/2023: NILM, HPV+ (non 16/18) 03/2024: [place] neg 08/2024: NILM, HPV+ other Plan per ASCCP guidelines and consult with Dr Lawrence: colposcopy Iron deficiency anemia due to chronic blood loss 04/18/2022 Overview (11/29/2024): Ongoing iron def 04/2020 (improved ferritin and iron panel, STFR/ferritin 1.83) - IV Fe 2021 hematology recommended annual ferritin and hgb, if ferritin <30- 50 then can return to heme for repeat IV iron. PCOS (polycystic ovarian syndrome) 12/22/2020 Urge incontinence 04/02/2019 Overview (04/05/2019): 04/05/2019 Dr Carroll plan to revise Interstim IPG 2019, no change of lead as working well. 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 Bulge of lumbar disc without myelopathy 04/07/20 Overview (04/07/2018): Onset back pain, leg weakness and paresthesias, incontinence. Per PMR consult 2015 She has been to multiple doctors including neurosurgeons, neurologists without any definitive cause for her pain. MRIs showed some disc bulging at L5-S1 with Tarlov cysts in the sacral area. She did go see a doctor in [place] that specializes in Tarlov cysts who felt those were likely are contributing to her symptoms I recommended she try to get a nerve block at the S1 level to see if that helps with her symptoms. physical therapy, gabapentin 300 mg t.i.d. 2015, 2016 OSH Lumbar MRI - s/p injection x2 Dr Jo PMR with relief. Back pain controlled as of 04/07/2018 Chronic fatigue 03/31/2018 Chronic constipation 03/31/2017 Overview (03/31/2018): Miralax 4 doses per day. Has tried biofeedback, interstim ineffective. Has seen [facility], has tried home. Reports pink lady enema only effective when worsened Migraine without aura and wi thout status migrainosus, not intractable 02/28/2017 Overview (04/07/2018): Imitrex works well for abortive therapy, currently reports under control. Lupus anticoagulant positive 05/23/2016 Overview (02/11/2017): No combined contraceptives. Progesterone only IUD or mini pill advised. Multiple joint pain 05/16/2016 Lower extremity weakness 05/16/2016 Insulin resistance syndrome 03/08/2016 History of syncope 03/08/2016 Overview (09/28/2018): Seeing [facility] Hol[facility], volume study and tilt table ordered Chronic pain syndrome 02/02/2016 Paresthesia of bilateral legs 10/13/2015 Gastroesophageal reflux disease without esophagi tis 10/13/2015 Overview (04/07/2018): Omeprazole 20 mg daily resumed 04/07/2018 due to daily symptoms uncontrolled off med. 11/19/16 EGD negative, negative biopsy for celiac, tried and failed Zantac in the past Generalized anxiety disorder 12/07/2010 Depressive disorder due to a nother medical condition with depressive features 12/07/2010 Overview (04/07/2018): MDD, reports previously diagnosed with functional neurological/somatic disorder - diagnosed with anxiety grade 3, diagnosed with depression approximately 2 years ago by psychiatry. Follows with a therapist every 3 weeks but [facility] [place], 1st name Louise. Has been on Cymbalta 60 mg b.i.d. for the past few years. OCD (obsessive compulsive disorder) 01/24/2005 Overview (12/25/2016): w/ separation anxiety, specific phobia Onset: ; Obsessive Compulsive Disorder Overactive bladder Overview (04/07/2018): Follows with urology. S/p bilateral ureteral reimplantation surgery for VUR, OAB - VNS inplace, rare UTI reported. Contact dermatitis and eczema Overview (03/31/2018): OTC eucerin cream Chronic gingivitis, plaque induced Interstitial cystitis (chronic) without hematuri a Resolved Problems Problem Noted Date Diagnosed Date Resolved Date Obesity, Class I, BMI 30-34.9 05/29/2022 11/29/2024 Routine health maintenance 05/06/2022 0 06/18/2024 Overview (12/15/2023): Reviewed at physical exam 12/15/2023 Menstrual periods: regular/PCOS Calcium/vit D: Recommended daily DEXA: NA Obesity: Estimated body mass index is 26.29 kg/m as calculated from the following: Height as of 08/01/23: 1.677 m (5' 6.02). Weight as of 08/01/23: 73.9 kg (163 lb). Exercise: Recommended daily 30 min Smoking cessation: Never smoker Mammogram: DUE 39 Pap smear: Last 2017, h/o + HPV - 05/06/2022 Neg due 12 months, 12/16/2023 to be completed * Colonoscopy: neg 2016 for IBS-C symptoms. DUE age 44 Urinary frequency 03/20/2022 11/29/2024 Overview (03/20/2022): Added automatically from request for surgery [id number] DIOR (iron deficiency anemia) 02/20/2021 11/29/2024 Iron deficiency 04/17/2020 11/29/2024 Urinary urgency 04/02/2019 04/17/2020 Overview (04/02/2019): Added automatically from request for surgery [id number] Urinary frequency 04/02/2019 04/17/2020 Overview (04/02/2019): Added automatically from request for surgery [id number] Contact with and suspected exposure to rabies 12/16/1904/05/2019 Bat bite wound 10/18/2018 04/05/2019 Migraines 09/28/2018 04/05/2019 Class 1 obesity due to exces s calories with body mass index (BMI) of 33.0 to 33.9 in adult 04/23/2018 04/24/2022 Family history of colonic polyps 03/31/2018 06/18/2024 Overview (03/31/2018): Prior colonoscopy for symptoms 2016 negative. Mother polyps age 45, great aunt colon cancer, mat grandfather polyps Urge incontinence 06/20/2017 03/31/2018 Overview (06/20/2017): Added automatically from request for surgery [id number] Somatic symptom disorder, mi ld, with predominant pain 02/28/2017 04/24/2022 Overview (02/28/2017): See [facility], Dr Harris. 02/2017. 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 Has seen multiple specialists in the past including ongoing neurology Dr Loomis, she has also seen neurology at Dr Arevalo - MRI 2016 showed bilateral optic nerve inflammation and normal EEG. rheumatology Dr Reyes (last week in follow up). Referred to dermatology for the facial rash, intermittent - ? If biopsy will be needed, usually occurs at night. she reports she saw another [facility] decating machine operator at [facility] years ago who she reports retired, but thought was combination of lupus and MS, ME - previously dx with fibromyalgia, has done pool therapy, lifestyle renewal, Neurology referred her to neuropsych recently Dr Madrid at [facility], summer 2017 - reports she was told her symptoms are not psychiatry driven or somatic, as previously told by [facility]ry. I am unable to find a [facility] OV note from psychiatry and unable to find a note with impression from neuropsych 1 year of worsening vision changes - states within couple months of new glasses, needs new Rx. Had appt with neuroophthalmology Dr Carrillo at . Lifestyle renewal program and PT for TMJ at [facility] going well as of 07/21/2018 Fibromyalgia 05/18/2016 02/28/2017 Bilateral lumbar radiculopathy 10/13/2015 03/31/2018 Adjustment disorder with depressed mood 11/11/2013 02/07/2014 Varicella 12/23/2006 07/01/2012 Overview (12/25/2016): Varicella Zoster Contact dermatitis and eczema 06/11/2004 09/23/2011 Overview (12/25/2016): Onset: [id number] ; Eczema Menometrorrhagia 07/01/2012 Interstitial cystitis 2017 Iron deficiency anemia 01/11 Deviated nasal septum 2017 Excessive bleeding in premenopausal period 04/24/2022 Overview (04/07/2018): History of lupus anticoagulant positive, taking Micronor continuously due to menorrhagia - mother states they are hesitant to consider IUD Encounters Date Type Department Care Team Description 01/21/2025 Refill [facility] Obstetrics/Gynecolo gy [address] [facility]. [place] [address] Twyla Guerrero, DO Refill (norethindrone, contraceptive, (MICRONOR) 0.35 MG tablet [Pharmacy Med Name: norethindrone (contraceptive) 0.35 mg tablet (MICRONOR (28))]) 01/11/2025 E-Visit Endoscopy at [facility] at [address] [place] [address] Mychart, Generic Provider 12/03/2024 12:10 PM CDT E-Visit [facility] [address] [place] [address] Meera Salter MD Chief Comp: Follow-up, NOS 12/03/2024 Telephone [facility] [id number] [place] [id number] Meera Salter MD Prior Authorization Request 11/30/2024 3:50 PM CDT Lab Visit [facility] [address] [place] [address] Screening for diabetes mellitus; Screening for hyperlipidemia; Polymyalgia (HRC); Paresthesia of bilateral legs; Iron deficiency anemia due to chronic blood loss; Pain of left calf 11/30/2024 3:00 PM CDT Office Visit [facility] [address] [place] [address] Meera Salter MD Routine physical examination (Primary Dx); PCOS (polycystic ovarian syndrome) (HRC); Iron deficiency anemia due to chronic blood loss; Overweight (BMI 25.0-29.9) (HRC); Polymyalgia (HRC); Screening for diabetes mellitus; Screening for hyperlipidemia; Paresthesia of bilateral legs; Globus sensation; Chronic pain syndrome; Constipation due to neurogenic bowel; Insulin resistance syndrome; Reactive hypoglycemia (HRC); Family history of Baig syndrome; Screening for colon cancer; Family history of malignant neoplasm of colon in first degree relative diagnosed when younger than 60 years of age; Pain of left calf; Family history of breast cancer 11/18/2024 E-Visit [facility] [address] [place] [address] Meera Salter MD Chief Comp: Appointment Questions 11/18/2024 E[facility] [address] [phone] Ivory Ramos, PharmD from Last 3 Months Immunizations Immunization Administration Dates Next Due 4vHPV (Gardasil) 07/27/2007,03/10/2007,200 7 DTP-Hib (Tetramune) 10/22/1995,199 5,1994,1994 DTaP 12/24/1999 DTaP/Hib 10/22/1995, 5,1994,1994 Flu Vac Preserv Free (3+yrs) 03/10/2007 HepA Ped/Adol (1-18 yrs) 07/27/2007,12/23/2006 HepB Adult (Engerix-B, 20+ y rs, 3 dose series) 1995,1994,1994 IPV (Polio) 12/24/1999 Influenza (Fluzone 0.25, 6-35 mos) 03/09/2013 Influenza IIV4 (Quadrivalent ) 0.5mL (99631) 03/09/2013,03/10/2007 Influenza LAIV (Nasal, 2-49 yrs) 04/14/2015,02/02 Influenza Vaccine Q/LAIV Int ranasal 2-49 yrs ([facility]) 02/03/2014 Influenza Vaccine, Nasal ([facility]) 03/10/2015 Influenza, Unspecified Formulation 02/20/2009, MCV4 (Menactra) 09/23/2011,12/23/2006 MMR 12/24/1999,10/22/1995 MMRV (ProQuad) 12/24/1999,10/22/1995 MPSV4 (Menomune) 12/23/2006 OPV, Trivalent (Orimune or tOPV) 1994,08/04,1994 Rabies 11/01/2018 Rabies, IM Fibroblast Cultur e (RabAvert) 10/25/2018,10/21/2018,10/18/2018 TDAP (BOOSTRIX) 12/23/2006 Td (7+ yrs) 01/17/2017 Family History Medical History Relation Name Comments Cancer Father Luther Colon- tied to my aunts breast cancer. Possible baig syndrome . Need colonoscopy Hypertension Father Luther Cancer Mother Cinthya Skin Colon Polyps Mother Cinthya adenomatous Depression Mother Cinthya Other Mother Cinthya Cancer, Melanoma Maternal Grandfather Bill Diabetes Maternal Grandfather Bill Diabetes Maternal Grandmother Rekhaely Cancer Paternal Aunt Zahra Breast cancer - its tied to my dads colon cancer. Need to be tested for baig syndrome. Need a mammogram. Cancer Paternal Grandfather Moris Colon Cancer, Colon Paternal Grandfather Moris Cataract Paternal Grandfather Moris Coronary Artery Disease Paternal Grandfather Moris Alzheimer's Paternal Grandmother Neela Hypertension Paternal Grandmother Pat Anesthesia Reaction Negative Family History Cancer, Breast Negative Family History Retinal Detachment Negative Family History Relation Name Status Comments Father Luther Alive Mother Cinthya Alive Brother 1 Alive Brother 2 Alive Maternal Grandfather Alfonso Alive Maternal Grandmother Shirdolores Alive Paternal Aunt Zahra Alive Paternal Grandfather Moris Alive Paternal Grandmother Neela Social History Tobacco Use Types Packs/Day Years Used Date Smoking Tobacco: Never Passive Smoke Exposure: Never Smokeless Tobacco: Never Tobacco Cessation:Counseling Given: Not Answered Alcohol Use Standard Drinks/Week Comments Yes 0 [...] 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 Not on file Not on file Not on file Last Filed Vital Signs Vital Sign Reading Time Taken Comments Blood Pressure 117/80 11/30/2024 2:43 PM CDT Pulse 92 11/30/2024 2:43 PM CDT Temperature 36.8 C (98.3 F) 05/12/2024 8:13 AM SUPERVISOR COREMAKER Respiratory Rate 16 05/12/2024 8:13 AM SUPERVISOR COREMAKER Oxygen Saturation 100% 05/12/2024 8:13 AM SUPERVISOR COREMAKER Inhaled Oxygen Concentration - - Weight 77.2 kg (170 lb 3.2 oz) 11/30/2024 2:43 P M CDT Height 165.5 cm (5' 5.16) 11/30/2024 2:43 PM CD T Body Mass Index 28.19 11/30/2024 2:43 PM CDT Plan of Treatment Upcoming Encounters Date Type Department Care Team (Late st Contact Info) Description 01/27/2025 3:00 PM CDT Telemedicine [facility] [address] [place] [address] Atiya Mckeon, WOOLEN TESTER, LOSS PREVENTION GUARD [address] [place] [address] 12/01/2025 9:30 AM CDT Appointment [facility] [address] [place], [place] [phone] [place] [address] [place], [place] [phone] Health Maintenance Due Date Last Done Comments COVID-19 Vaccine ( season) 2025 Cervical Cancer Screening 09/24/20252024, 08/20/2024, 08/20/2024, Additional history exists Adult Preventive Visit 11/30/2026 , 12/16/2023, 05/07/2022, Additional history exists DTaP/Tdap/Td Vaccine (8 - Tdap) 01/17/2027 01/17/2017, 12/23/2006, 12/24/1999, Additional history exists Dexa 12/21/2029 12/22/2019 Zoster/Shingles Vaccine (1 of 2) 2044 HepB Vaccine Completed 1995, 08/04, 1994 Hib Vaccine Completed 10/22/1995, 10/03, 1994, Additional history exists HPV Vaccine Completed 07/27/2007, 10/2006, 12/23/2006 HepA Vaccine Completed 07/27/2007, 12/23/2006 MCV4 Vaccine Completed 09/23/2011, 12/04, 12/23/2006 Chlamydia Discontinued 05/20/2023, 02/03, 11/13/2022, Additional history exists HIV Screening (Preventive Services) Completed 03/26/2024, 05/20/2023, 11/13/2022, Additional history exists Hep C Screening (Preventive Services) Completed 03/26/2024, 05/20/2023, 11/13/2022, Additional history exists Meningococcal B Vaccine Aged Out No l onger eligible based on patient's age to complete this topic Pneumococcal Vaccine Aged Out No long er eligible based on patient's age to complete this topic Medical Devices Implanted Type Area Chip Mixer Device Identifier Shelf Expiration Date Model / Serial / Lot Stimulator Neuro Interstim Ii - [id number] Implanted:Qty : 1 on 07/03/2017 by Holly Carroll MD at [facility] DEVICE Left: OTHER-SEE DESCRIPTION Medtronic - Neurological 11/15/2018 3058 / [id number] / [id number] Description:implanted to lef t sacral area by Dr. Carroll Lead Surescan Micro - [id number] Implanted:Qty : 1 on 05/02/2022 by Brittany Gruber MBBS at [facility] DEVICE N/A: BACK Medtronic 08/27/2023 [id number] / / [id number] Interstim Urologic 4.3mm Interstim X Generator Implanted:Qty : 1 on 05/02/2022 by Brittany Gruber MBBS at [facility] N/A: BACK Medtronic 08/31/2023 [id number] / [id number] / Description:INTERSTIM X Explanted Type Area Chip Mixer Device Identifier Shelf Expiration Date Model / Serial / Lot Stimulator Neuro Interstim Ii - [id number] Implanted:Qty: 1 on 04/22/2019 by Holly Carroll MD at [facility] Explanted:Qty: 1 on 05/02/[address] [facility] DEVICE Medtronic - Neurological 01/31/2020 3058 / [id number] / Description:VARIFIED BY DR Reena STRINGER AND C-ARM Procedures Procedure Name Priority Date/Time Associated Diagnosis Comments D DIMER, QUANTITATIVE STAT 11/30/2024 3:51 PM CDT Pain of left calf COMPLETE BLOOD COUNT-NO DIFF Routine 11/30/2024 3:51 PM CDT Iron deficiency anemia due to chronic blood loss Polymyalgia (HRC) FREE T4 Routine 11/30/2024 3:51 PM CDT Paresthesia of bilateral legs TSH, SENSITIVE Routine 11/30/2024 3:51 PM CDT Paresthesia of bilateral legs ALT (SGPT) Routine 11/30/2024 3:51 PM CDT Paresthesia of bilateral legs AST Routine 11/30/2024 3:51 PM CDT Paresthesia of bilateral legs BASIC METABOLIC PANEL Routine 11/30/2024 3:51 PM CDT Polymyalgia (HRC) LIPID PANEL & DIRECT LDL (IF NEEDED) Routine 11/30/2024 3:51 PM CDT Screening for hyperlipidemia HGB A1C Routine 11/30/2024 3:51 PM CDT Screening for diabetes mellitus CYTOLOGY (PAP), REFLEX FROM HPV ONLY Routine 08/20/2024 10:51 AM CDT Special screening examination for human papillomavirus (HPV) HIV 1/2 AG/AB 4TH GEN Routine 03/26/2024 4:53 PM SUPERVISOR COREMAKER Exposure to blood or body fluid HEPATITIS C ANTIBODY, WITH REFLEX (ANTI-HCV) Routine 03/26/2024 4:53 PM SUPERVISOR COREMAKER Exposure to blood or body fluid CHLAMYDIA & GC (14 YEARS & OLDER) Routine 05/20/2023 1:08 PM SUPERVISOR COREMAKER Lower abdominal pain DXA BONE DENSITY SPINE/HIP Routine 12/22/2019 10:58 AM CDT Frequent fractures of bone from Last 3 Months or Most Recently Relevant to Health Maintenance Results * Lipid Panel & Direct LDL (if Needed) (11/30/2024 3:51 PM CDT) Pathologist [facility] Cholesterol 145 0 - 199 mg/dL 11/30/2024 7:30 PM CDT [facility] Triglyceride 104 <=149 mg/dL 11/30/2024 7:30 PM T [facility] HDL Cholesterol 47 >=40 mg/dL 7:30 PM CDT [facility] LDL, Calculated 77 <130 mg/dL 7:30 PM T [facility] Non HDL Chol, Calculated 98 <=159 mg/dL 11/30/2024 7:30 PM T [facility] Cholesterol/HDL Ratio 3.1 <=5.0 11/30/2024 7:30 PM T [facility] Hours Fasting 0.0 8 - 12 Hours 11/30/2024 7:30 PM T [facility] Comment:Patient has indicate d a non-fasting status. Blood Venipuncture / Unknown 11/30/2024 3:51 PM CDT 11/30/2024 3:51 PM CDT us Meera Salter MD LAB_1 Final Result [facility] [address] [place] [phone] * D Dimer, Quantitative STAT (11/30/2024 3:51 PM CDT) D Dimer, Quant <0.27 <=0.50 ug/mL FEU 11/30/2024 4:24 PM T [facility] Blood Venipuncture / Unknown 11/30/2024 3:51 PM CDT 11/30/2024 3:51 PM CDT Narrative [facility] - 11/30/2024 4:24 PM CDT A D-dimer level <=0.50 ug/mL FEU in a patient with a low clinical pretest probability for a 1st episode of DVT can rule out lower extremity DVT (rate of DVT in next 3 months < 2%). For patients greater than 50 years of age, the application of age-adjusted cut- off values for D-Dimer may increase the specificity without significant effect on sensitivity. The results in this laboratory are reported as ug/mL FEU. The calculation for age adjusted cut off in ug/mL FEU = age in years x 0.01 ug/mL FEU. For example, the cut off for a 75 year old male is 76 x 0.01 ug/mL FEU = <=0.76 ug/mL FEU. Increased D-dimer is seen in thromboembolism, DIC, liver disease, renal disease, cardiac infarct and failure, cancer, , stroke, infection, recent surgery, hemorrhage and age > 70 years. D-dimer levels decrease with anticoagulation therapy and increasing clot age. Meera Salter MD LAB_1 Final Result Performing Organization Address City/[facility]/ZIP Co de Phone Number [facility] [address] [place] [address] * TSH (11/30/2024 3:51 PM CDT) [facility] TSH, Sensitive 1.25 0.30 - 4.50 uIU/mL 11/30/2024 9:41 PM CDT [facility] Blood Venipuncture / Unknown 11/30/2024 3:51 PM CDT 11/30/2024 3:51 PM CDT Meera Salter MD LAB_1 Final Result [facility] [address] * Basic Metabolic Panel (11/30/2024 3:51 PM CDT) [facility] Sodium 141 136 - 145 mmol/L 11/30/2024 7:30 PM CDT [facility] Potassium 4.2 3.5 - 5.1 mmol/L 11/30/2024 7:30 PM [facility] Chloride 108 98 - 109 mmol/L 11/30/2024 7:30 PM [facility] CO2 26 20 - 29 mmol/L 11/30/2024 7:30 PM [facility] Anion Gap 7 6 - 16 mmol/L 11/30/2024 7:30 PM [facility] Calcium 9.1 8.4 - 10.4 mg/dL 11/30/2024 7:30 PM [facility] BUN 14 7 - 26 mg/dL 11/30/2024 7:30 PM [facility] Creatinine 0.66 0.55 - 1.02 mg/dL 11/30/2024 7:30 PM [facility] Glucose 77 70 - 100 mg/dL 11/30/2024 7:30 PM [facility] Comment:The given reference range is for the fasting state. Non-fasting reference range for glucose is 70 - 180 mg/dL. GFR, Estimated >60 >60 mL/min/1.7 3m2 11/30/2024 7:30 PM [facility] Hours Fasting 0.0 8 - 12 Hours 11/30/2024 7:30 PM [facility] Comment:Patient has indicate d a non-fasting status. Blood Venipuncture / Unknown 11/30/2024 3:51 PM CDT 11/30/2024 3:51 PM CDT us Meera Salter MD LAB_1 Final Result [facility] [address] [place] [address] * Complete Blood Count-No Diff (11/30/2024 3:51 PM CDT) WBC 7.0 3.5 - 10.5 x10(9)/L 11/30/2024 3:55 PM T [facility] RBC 4.38 3.90 - 5.03 x10(12)/L 11/30/2024 3:55 PM CDT [facility] Hemoglobin 13.5 12.0 - 15.5 g/dL 11/30/2024 3:55 PM CDT [facility] HCT 39.4 34.9 - 44.5 % 11/30/2024 3:55 PM CDT [facility] MCV 90.0 80.0 - 100.0 fL 11/30/2024 3:55 PM CDT [facility] MCH 30.8 27.6 - 33.3 pg 11/30/2024 3:55 PM CDT [facility] MCHC 34.3 31.5 - 35.2 g/dL 11/30/2024 3:55 PM CDT [facility] RDW 11.9 11.9 - 15.5 % 11/30/2024 3:55 PM CDT [facility] Platelets 206 150 - 450 x10(9)/L 11/30/2024 3:55 PM CDT [facility] Automated NRBC 0 <=0 /100 WBC 11/30/2024 3:55 PM CDT [facility] Blood Venipuncture / Unknown 11/30/2024 3:51 PM CDT 11/30/2024 3:51 PM CDT us Meera Salter MD LAB_1 Final Result [facility] [address] [place] [address] * Free T4 (11/30/2024 3:51 PM CDT) [facility] T4, Free 0.8 0.7 - 1.5 ng/dL 11/30/2024 9:40 PM CDT [facility] Blood Venipuncture / Unknown 11/30/2024 3:51 PM CDT 11/30/2024 3:51 PM CDT Meera Salter MD LAB_1 Final Result [facility] [address] [place], [place] [address] [place] [address] * Hgb A1C (11/30/2024 3:51 PM CDT) [facility] Hemoglobin A1C (Rapid) 4.6 <=5.6 % 11/30/2024 4:22 PM CDT [facility] Estimated Average Glucose (Calc) 85 < 117 mg/dL 11/30/2024 4:22 PM CDT [facility] Comment:Estimated average gl ucose (eAG) converts A1c into glucose units (mg/dL) and estimates average glucose over the past approximately 3 months. The eAG reference interval (<117 mg/dL) corresponds to an A1c of <5.7%. Blood Venipuncture / Unknown 11/30/2024 3:51 PM CDT 11/30/2024 3:51 PM CDT Narrative [facility] - 11/30/2024 4:22 PM CDT The test method used for this Hemoglobin A1c result can experience interference from elevated hemoglobin and other hemoglobin variants. In patients with results that do not correlate clinically, contact the lab for further direction. Meera Salter MD LAB_1 Final Result Performing Organization Address [facility] de Phone Number [address] * ALT (SGPT) (11/30/2024 3:51 PM CDT) ALT (SGPT) 15 0 - 55 U/L 11/30/2024 7:30 PM CDT [facility] Blood Venipuncture / Unknown 11/30/2024 3:51 PM CDT 11/30/2024 3:51 PM CDT Meera Salter MD LAB_1 Final Result Performing Organization Address [facility] de Phone Number [address] * (ABNORMAL) AST (11/30/2024 3:51 PM CDT) AST (SGOT) 15(L) 16 - 46 U/L 11/30/2024 7:30 PM CDT [facility] Blood Venipuncture / Unknown 11/30/2024 3:51 PM CDT 11/30/2024 3:51 PM CDT us Meera Salter MD LAB_1 Final Result [facility] [address] [place] [address] * Cytology (Pap), Reflex from HPV (08/20/2024 10:51 AM CDT) Case Report Pap Case: [id number] Authorizing Provider: Twyla Guerrero DO Collected: 08/20/2024 1051 Ordering Location: [place] [address] Received: 08/25/2024 1422 Obstetrics/Gynec ology First Screen: Maura Granger Rescreen: Becca Ramey CT (ASCP) Specimen: Pap Test, Routine, Cervix/Endocervix 09/13/2024 4:02 PM CDT [facility] Pap Specimen Adequacy Satisfactory for evaluation, endocervical/buchanan sformation zone component present. 09/13/2024 4:02 PM CDT [facility] Pap Interpretation (NILM) Negative for intraepithelial lesion or malignancy. 09/13/2024 4:02 PM CDT [facility] at 1602 CDT Pap Disclaimer The Pap test is a screening test to aid in the detection of cervical and vaginal cancers and their precursor lesions. It is not a diagnostic procedure and should not be used as the sole means of detecting malignancy. Both false-positive and false-negative results may occur. 09/13/2024 4:02 PM CDT [facility] Gross Description The specimen is received in SurePath fixative and properly labeled. 1 Pap-stained SurePath slide is prepared. 09/13/2024 4:02 PM CDT [facility] Embedded Images 4:02 PM CDT [facility] Cervical Broom ENTIRE ENDOCERVIX / Unknown 08/20/2024 10:51 AM CDT 08/25/2024 2:22 PM CDT Comment:LMP: Patient's last menstrual period was 08/08/2024 (exact date). Twyla Guerrero DO LAB PATHOLOGY Final Resul t Performing Organization Address [facility] Co de Phone Number [facility] [address] [place] [address] * HIV 1/2 Ag/Ab 4th Generation (03/26/2024 4:53 PM SUPERVISOR COREMAK[employer]) Pathologist [facility] HIV 1/2 Antigen/Antib adenike (4th generation) Negative (Non Reactive) Negative (Non Reactive) 03/26/2024 9:44 PM [employer]PERVISOR [employer]AK[employer] [facility] Comment:HIV-1 p24 Antigen an d HIV-1/HIV-2 Antibody not detected Blood Venipuncture / Unknown 03/26/2024 4:53 PM [employer] 03/26/2024 4:53 PM SUPER[employer]OR [employer]AK[employer] Damien Mosquera MD LAB_1 Final Resu lt Performing Organization Address [facility] de Phone Number [facility] [address] [place] [address] * Hepatitis C Antibody, with Reflex (03/26/2024 4:53 PM SUPERVISOR COREMAKER) Pathologist [facility] Hepatitis C Antibody Negative (Non Reactive) Negative (Non Reactive) 03/26/2024 9:44 PM SUPERVISOR [employer]AK[employer] [facility] Comment:Antibodies to HCV no t detected. Does not exclude the possiblity of exposure to HCV. Blood Venipuncture / Unknown 03/26/2024 4:53 PM SUPERVISOR [employer]EMAKER 03/26/2024 4:53 PM SUPERVISOR [employer]AK[employer] Damien Mosquera MD LAB_1 Final Resu lt Performing Organization Address [facility] de Phone Number [facility] [address] [place] [address] * Chlamydia & GC (14 Years and Older): Vagina (05/20/2023 1:08 PM SUPERVISOR COREMAKER) Pathologist [facility] Chlamydia Trachomatis STD Not Detected Not Detected 05/21/2023 3:50 PM SUPERVISOR [employer]EMAK[employer] [facility] N. gonorrhoeae STD Not Detected Not Detected 05/21/2023 3:50 PM SUPERVISOR COR[employer]AK[employer] [facility] Swab STD SPECIMEN FROM VAGINA / Unknown Non-blood Collection / Unknown 05/20/2023 1:08 PM SUPERVISOR COREMAKER 05/20/2023 4:27 PM SUPERVISOR COREMAKER Narrative [facility] - 05/21/2023 3:50 PM SUPERVISOR [employer]EMAKER Test performed by Manager Mental Health Mediated Amplification (TMA). us Antonia Marcos MD LAB_1 Final Res ult [facility] [address] [address], [facility] [phone] * DEXA Bone Density Spine/Hip (12/22/2019 10:58 AM CDT) Anatomical Region Laterality Modality Lower Extremity, Spine, Hip, L-Spine Other Narrative 12/26/2019 7:08 AM CDT CLINIC DXA REPORT Patient Name: Gisella Park [facility]: Edy Frazier MD Densitometer: CodeSealer Discovery A (S/N [id number]) TRIA BONE5 OSTEOPOROSIS RISK FACTORS FROM PATIENT QUESTIONNAIRE: The patient is a 24 y.o.female: Calcium intake is probably adequate. There is a self-reported personal history of wrist fracture. There is no family history in a first degree relative of hip and/or spine fracture. Two or more self-reported indoor and outdoor falls over the past 12 months BONE MINERAL DENSITY: Lumbar Spine Vertebrae Included: L2;L3;L4 Bone Mineral Density (gm/cm2): 1.087 T-Score: 0.1 Z-Score: 0.1 Total Hip Bone Mineral Density (gm/cm2): 0.92(LEFT) T-Score: -0.2 Z-Score: -0.2 Femoral Neck Bone Mineral Density (gm/cm2): 0.805 T-Score: -0.4 Z-Score: -0.4 COMPARISON TO PRIOR STUDY: This is a baseline bone density test (first one at [facility]) VERTEBRAL FRACTURE ASSESSMENT: Not done ASSESSMENT: 1. Normal bone mineral density, based on T-score(s) at all axial skeletal sites 2. Patient is at low risk of fracture, based on age, fracture history, bone mineral density at all skeletal sites, and presence or absence of other risk factors. RECOMMENDATIONS: 1. Maintain appropriate calcium and vitamin D intake 2. Repeat DXA in 10 years unless clinical circumstances changes warranting bone densitometry sooner. FRAX Explanation: The 10 year risks of hip and major osteoporotic fractures (clinical spine, forearm, hip or shoulder fracture) are calculated by the FRAX algorithm based on femoral neck bone density, age, gender, race/ethnicity, weight, height, previous fracture, parental hip fracture, smoking status, glucocorticoid intake, history of RA, secondary osteoporosis, and high alcohol consumption. FRAX Fracture Risk Categories in terms of major osteoporotic fractures: < 10% = low fracture risk ? 10% and <15% = mildly increased fracture risk ? 15% and <20% = moderately increased fracture risk ? 20% and <30% = high fracture risk ? 30% = very high fracture risk National Osteoporosis Foundation Treatment Guideline A clinician may consider FDA-approved medical therapies in postmenopausal women and men aged 50 years and older, if one or more of the following is present (clinical correlation required and therapy may not always be indicated): 1. The patient has a hip or vertebral fracture. 2. T-score ? -2.5 at the femoral neck, hip, or spine after appropriate evaluation to exclude secondary causes. 3. Low bone mass (T-score between -1.0 and -2.5 at the femoral neck, hip or spine) and a 10-year probability of a hip fracture ? 3% or a 10-year probability of a major osteoporosis-related fracture ? 20% based on the FRAX scores. Hailey Araujo MD RAD DEXA Final Result from Last 3 Months or Most Recently Relevant to Health Maintenance Insurance [facility] [place] [address] [facility] Care Teams Electric Power Line Examiner Relationship Specialty [place] [address] [place] [address] PCP - General Internal Medicine 07/21/18
--- OUTSIDE RECORDS SUMMARY | 2025-01-24 13:19 | XMS_ITS | Clinical Summary ---
Author Organization [facility] Address [address] [place] [id number] Care Team Providers Care Binder Caser Name Role Phone Doron Restrepo MD Unavailable [phone] Shakir Givens MD Unavailable [phone] Meera Salter Primary Care Provider [phone] Allergies Active Allergy Reactions Criticality Noted Date Comments Diatrizoate Allergen Hives 08/27/2018 Diclofenac Anaphylaxis,Angioedema High 08/22/2015 Fluticasone Other - Describe In Comment Field 10/03/2015 Nose Bleeds Unlisted Allergen (Include Detail In Comments) Anaphylaxis High 06/27/2015 Formaldehyde, any preservatives [place] Anaphylaxis,Hives High 06/27/2015 Sulfa (Sulfonamide Antibiotics) Hives [...] once weekly. 2 mL 3 2:20 PM [facility] 05/29/19 23 Active fremanezumab-vfrm (Ajovy Autoinjector) 225 [...] bedtime. 30 Tablet 5 3 5:05 PM [facility] 03/13/20 23 Active suvorexant (Belsomra) 10 mg tablet Take 1 tablet by mouth 30 minutes before bedtime. 30 Tablet 5 3 4:51 PM [facility] 03/21/20 23 Active benzonatate (TESSALON) 200 mg [...] groin. 80 g 11 08/27/19 24 Active drospirenone, contraceptive, (Slynd) 4 mg (28) tab Take 1 Tablet by mouth once daily. 84 Tablet 3 4 4:59 PM CDT 12/02/19 24 Active norethindrone, Contraceptive, (MICRONOR, 28,) 0.35 mg tablet Take 1 Tablet (0.35 mg) by mouth once daily. 84 Tablet 3 5 2:43 PM [facility] 01/21/20 24 Active EPINEPHrine 0.3 mg/0.3 mL auto-injector Inject 0.3 mg intramuscular one time if needed for up to 1 dose. May repeat. 2 Each 1 5 11:16 AM CDT 03/17/20 24 Active semaglutide (weight loss) (Wegovy) 2.4 mg/0.75 mL subcutaneous pen Inject 2.4 mg subcutaneous once weekly. 9 mL 3 12/01/19 25 Active busPIRone (BUSPAR) 10 mg tablet Take 2 Tablets (20 mg) by mouth two times daily. 360 Tablet 3 5 10:01 AM CDT 12/01/19 25 Active DULoxetine (CYMBALTA) 60 mg Delayed-release capsule Take 1 Capsule (60 mg) by mouth two times daily. 180 Capsule 3 5 10:01 AM CDT 12/01/19 25 Active gabapentin (NEURONTIN) 300 mg capsule Take 1 Capsule (300 mg) by mouth two times daily. 180 Capsule 3 5 12:31 PM CDT 12/01/19 25 Active prucalopride (MOTEGRITY) 2 mg tablet Take 1 tablet by mouth once daily. 90 Tablet 3 5 12:31 PM CDT 12/01/19 25 Active Active Problems Patient Care Coordination No te Formatting of this note migh t be different from the original. Provided patient [facility] Weight Management Manual: Medical Program Kesha Perry RD, LD [facility] 02/15/2016 Problem Noted Date Diagnosed Date Contact [...] smear: Last 2017, 05/06/2022 completed Colonoscopy: neg 2016 for IBS-C symptoms. 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 on file Not on file Not on file Obstetrics History Last Filed Vital Signs Vital Sign Reading Time Taken Comments Blood Pressure 115/73 06/16/2024 1:30 PM [facility] Pulse 84 06/16/2024 1:30 PM [facility] Temperature 36.6 C (97.9 F) 06/16/2024 11:50 AM [facility] Respiratory Rate 20 06/16/2024 11:50 AM [facility] Oxygen Saturation 98% 06/16/2024 1:30 PM [facility] Inhaled Oxygen Concentration - - Weight 73.9 kg (163 lb) 06/16/2024 11:50 AM [facility] Height 165.1 cm (5' 5) 06/16/2024 11:50 AM [facility] Body Mass Index 27.12 06/16/2024 11:50 AM [facility] Plan of Treatment Health Maintenance Due Date Last Done Comments Tetanus booster 2005 HIV for age 15-65 2009 Hepatitis C screening for ag e 18-79 2012 Hepatitis B series for 19+ ( 1 of 3 - 19+ 3-dose series) 2013 Pneumococcal series for age 6-49 (1 of 2 - PCV) 2013 Pap test for age 21-65 2015 Depression screening for age 12+ 03/08/2017 03/08/2016, 03/08/2016, 03/07/2016, Additional history exists BMI (ht and wt on same day) for age 18+ 05/27/2017 05/27/2016, 03/08/2016, 03/01/2016, Additional history exists HPV series for age 9-45 (1 - 3-dose SCDM series) 2021 COVID-19 vaccine series (2023- season) 2025 Influenza Vaccine (#1) 2025 RSV vaccine for adults or (1 - 1-dose 75+ series) 2069 Insurance [employer] [place] [id number] Advance Directives * Full Code (Latest Code Status on File) Date Activated Date Inactivated Comments 12/27/2021 8:26 PM 12/28/2021 1:36 PM Question Answer Comments Code Status Discussion: Reviewed Preferences Care Teams Binder Caser Relationship Specialty Start Date End Date Meera Salter [address] [place] [address] PCP - General Internal Medicine 08/27/18 Doron Restrepo MD [address] [place] [address] Neurology Neurology 02/21/16 Shakir Givens MD [address] [facility] [address] [facility] [address] [place] [address] Rheumatology Rheumatology 08/27/16
[2025-01-24] MEDS: METHYLPREDNISOLONE SOD SUCC 62.5 MG/ML (125) 125 MG IVP (13:32)
--- NOTE | 2025-01-24 13:37 | ED.GENADULT ---
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 She says for the past 1/2 hour so she has been feeling like her throat is closing. She says she has a history of allergic reactions/anaphylaxis with any preservatives. She says that she spilled some Pitocin was not wearing gloves, she is concerned that the Pitocin might have contained a preservative that she is allergic to. She feels like it is difficult to swallow. She is breathing without difficulty, she says the left side of her neck started to itch about 5 minutes ago. She took some Benadryl. She says that she is allergic to the preservatives an EpiPen so she tries to avoid those as well and usually gets IV Benadryl when she has symptoms. She has never required hospitalization or intubation for these episodes. Related Data Home Medications ?Medication ?Instructions ?Recorded ?Confirmed buspirone 30 mg tablet 30 mg PO BID 09/07/24 10/11/24 duloxetine 60 mg capsule,delayed 60 mg PO BID 09/07/24 10/11/24 release (Cymbalta) gabapentin 300 mg capsule 300 mg PO BID 09/07/24 10/11/24 levonorgestrel 17.5 mcg/24 hr (up 1 device intrauterine ONCE 09/07/24 10/11/24 to 5 yrs) 19.5mg intrauterine device (Kyleena) prucalopride 2 mg tablet 2 mg PO QDAY 09/07/24 10/11/24 semaglutide 1 mg/dose (2 mg/1.5 2 mg subcut QWEEK 09/07/24 10/11/24 mL) subcutaneous pen injector Allergies Allergy/AdvReac Type Severity Reaction Status Date / Time cucumber Allergy Severe Anaphylaxis Verified 01/24/25 13:25 formaldehyde Allergy Severe Anaphylaxis Verified 09/07/24 15:04 watermelon Allergy Severe Anaphylaxis Verified 01/24/25 13:25 avocado Allergy Unknown Verified 10/11/24 08:22 Iodinated Contrast Media Allergy Unknown Verified 10/11/24 08:22 shellfish derived Allergy Unknown Verified 10/11/24 08:22 strawberry Allergy Unknown Verified 10/11/24 08:22 diclofenac AdvReac Mild Hives Verified 09/07/24 15:04 Sulfa (Sulfonamide AdvReac Mild Rash Verified 09/07/24 15:04 Antibiotics) Review of Systems Status of ROS: Reports: 6 or more systems reviewed and unremarkable except as noted in History and below [facility] Social History Smoking Status: Never smoker How often do you have a drink containing alcohol: monthly or less How often do you have six or more drinks on one occasion: Never AUDIT-C Alcohol total score: 1 Non-prescribed substance use: denies use Exam Narrative: Exam Narrative: Vital signs reviewed In general, alert, nontoxic young woman. Breathing easily, voice is normal. Head: Normocephalic, atraumatic. Eyes: Sclera clear. Pupils equal and reactive. ENT: Mucous membranes moist. No edema, airway widely patent. Neck: Supple without adenopathy. No masses, no stridor. There is a little bit of redness on the left side of her neck where it looks like she has been scratching, but there is otherwise no erythema, no hives. Heart: Regular rate and rhythm without murmur. Lungs: Clear. No increased work of breathing, crackles or wheezes. Abdomen: Soft, nontender to palpation. Extremities: Well perfused, pulses intact. No significant edema. Neurologic: Alert, conversant. Speech fluent, face symmetric. Moves all extremities equally. Skin: Warm, dry well perfused. No rashes or flushing. Affect: Normal. Const: Vital Signs, click to edit/add: Vital Signs - 24 hr 01/24/25 13:20 01/24/25 13:31 01/24/25 13:46 Temperature 97.6 F Pulse Rate 105 H 89 Pulse Rate [Pulse Oximeter] 102 H Respiratory Rate 18 Blood Pressure 129/87 128/79 Blood Pressure [Le ft Upper Arm] 151/106 H Pulse Oximetry 100 99 99 Oxygen Delivery Me thod Room Air 01/24/25 14:01 Temperature Pulse Rate 88 Pulse Rate [Pulse Oximeter] Respiratory Rate 15 Blood Pressure 119/74 Blood Pressure [Le ft Upper Arm] Pulse Oximetry 100 Oxygen Delivery Me thod Course Course ED Course: With place an IV, will keep on the monitor and give her 25 mg of IV Benadryl as well as some IV Solu-Medrol. Overall, my suspicion for anaphylaxis is low given normal exam, normal vital signs with the exception of mild tachycardia of pulse 102. O2 sats are 100%, blood pressure is mildly elevated certainly no evidence of shock. For now I think monitoring is reasonable, if symptoms worsen would consider use of EpiPen. Reevaluation(s) Time of Reevaluation #1: 14:01 Reevaluation #1: Patient's throat is feeling somewhat improved after Benadryl, she says it no longer feels ?like a rock. She does say that as they were giving the Benadryl she felt burning in her throat and that has never happened before. However, she certainly feeling no worse and seems to be feeling slightly better. She continues to have a patent airway, no stridor, no rash, the area of secondary excoriation on her neck has resolved and no further rash has developed. Time of Reevaluation #2: 14:49 Reevaluation #2: Symptoms have resolved, throat is now little bit sore but otherwise feels back to normal. Okay to discharge home, prednisone, antihistamines. Return for worsening symptoms, follow-up p.r.n.. Vital Signs Vital signs: Initial Vital Signs Temperature 97.6 F 01/24/25 13:20 Temperature Source Temporal Artery Scan 01/24/25 13:20 Pulse Rate 102 H 01/24/25 13:20 Respiratory Rate 18 01/24/25 13:20 Blood Pressure 151/106 H 01/24/25 13:20 Blood Pressure Mean 121 H 01/24/25 13:20 Blood Pressure Position Supine 01/24/25 13:20 Pulse Oximetry 100 01/24/25 13:20 Oxygen Delivery Method Room Air 01/24/25 13:20 Vital Signs Temperature 97.6 F 01/24/25 13:20 Pulse Rate 102 H 01/24/25 13:20 Respiratory Rate 18 01/24/25 13:20 Blood Pressure 151/106 H 01/24/25 13:20 Pulse Oximetry 100 01/24/25 13:20 Oxygen Delivery Method Room Air 01/24/25 13:20 Temperature 97.6 F 01/24/25 13:20 Pulse Rate 88 01/24/25 14:01 Respiratory Rate 15 01/24/25 14:01 Blood Pressure 119/74 01/24/25 14:01 Pulse Oximetry 100 01/24/25 14:01 Oxygen Delivery Method Room Air 01/24/25 13:20 Medications Administered Medications: Discontinued Medications Generic Name Dose Route Start Last Admin Trade Name Mony PRN Reason Stop Dose Admin Diphenhydramine HCl 25 mg 01/24/25 13:22 01/24/25 13:32 Diphenhydramine 50 Mg/Ml Inj IVP 01/24/25 13:23 25 mg ONCE ONE Administration Sodium Chloride 1,000 mls @ 1,000 mls/hr 01/24/25 13:30 01/24/25 14:27 0.9 % Sodium Chloride 1000 Ml IV 01/24/25 14:29 Infused .Q1H MAX Infusion Methylprednisolone Sodium Succinate 125 mg 01/24/25 13:22 01/24/25 13:32 Methylprednisolone Sod Succ 62.5 Mg/Ml (125) IVP 01/24/25 13:23 125 mg ONCE ONE Administration Discharge Plan Discharge Clinical Impression: Allergic reaction Patient Disposition: Home, Self-Care Condition: Improved Instructions: General Allergic Reaction (ED) Additional Instructions: Take an antihistamine such as Benadryl or Zyrtec on a scheduled basis for the next couple of days. Prednisone as prescribed. Return for worsening. Follow up p.r.n.. Prescriptions: No Action prucalopride 2 mg tablet 2 mg PO QDAY gabapentin 300 mg capsule 300 mg PO BID buspirone 30 mg tablet 30 mg PO BID duloxetine [Cymbalta] 60 mg capsule,delayed release(DR/EC) 60 mg PO BID semaglutide 1 mg/dose (2 mg/1.5 mL) pen injector 2 mg subcut QWEEK Kyleena 17.5 mcg/24 hr (5 yrs) 19.5 mg intrauterine device 1 device intrauterine ONCE Rx Instructions: as a single dose Follow Up/Referrals: Provider,Not a Local [Primary Care Provider, Family Practice] Stand Alone Forms: MyHealth Info Instructions
== END 2025-01-24 14:57 | disposition home or self-care (01) ==
PROVIDERS: Emergency Provider Emergency Medicine
DX: L29.9 Pruritus, unspecified (principal); T48.0X5A Adverse effect of oxytocic drugs, initial encounter; Y92.238 Other place in hospital as the place of occurrence of the external cause
CPT/HCPCS: 96374; 96375; 99283; 99284; J1200; J2919; J7030